=== PATIENT | female | born 1970 | race Caucasian/White ===

== ENCOUNTER 2020-01-13 09:34 | Outpatient (REF) | payer BC, SELFPAY ==
--- NOTE | 2020-01-13 11:02 | US_ITS ---
EXAMINATION: US PELVIS ULTRASOUND CLINICAL INFORMATION: Left lower quadrant pain. Prior history left oophorectomy. Age 49. COMPARISON: Pelvic ultrasound 12/05/2013, CT abdomen and pelvis noncontrast 12/05/2013. TECHNIQUE: Ultrasound of the pelvis is performed using both transabdominal and transvaginal transducers along with Doppler. Transvaginal imaging is performed due to inadequate visualization transabdominally. FINDINGS: Uterus: The uterus is anteverted and measures 9.3 x 3.8 x 4.9 cm. The double wall endometrial thickness is normal at 4 mm. An IUD is seen in expected position. The uterus is smooth in contour and has normal myometrial echogenicity. No visible fibroid. There are a few tiny nabothian cysts in the cervix. Adnexa: Prior left oophorectomy. No left pelvic mass. There is small to moderate ascites in the cul-de-sac. Right ovary measures 4.6 x 1.3 x 3.8 cm (volume 12 mL). There is an incidental dominant follicle in the right ovary measuring 1.7 x 1.2 x 1.6 cm. There is normal color flow to the right ovary. US/US pelvic complete IMPRESSION: 1. Uterus: IUD in expected position. No visible fibroid. 2. Adnexa: Small to moderate ascites cul-de-sac. Incidental dominant follicle right ovary under 2 cm. Prior left oophorectomy.
[2020-01-13 11:14] LABS: MANUAL DIFF FLAG NO
--- NOTE | 2020-01-13 11:16 | US_ITS ---
EXAMINATION: US PELVIS ULTRASOUND CLINICAL INFORMATION: Left lower quadrant pain. Prior history left oophorectomy. Age 49. COMPARISON: Pelvic ultrasound 12/05/2013, CT abdomen and pelvis noncontrast 12/05/2013. TECHNIQUE: Ultrasound of the pelvis is performed using both transabdominal and transvaginal transducers along with Doppler. Transvaginal imaging is performed due to inadequate visualization transabdominally. FINDINGS: Uterus: The uterus is anteverted and measures 9.3 x 3.8 x 4.9 cm. The double wall endometrial thickness is normal at 4 mm. An IUD is seen in expected position. The uterus is smooth in contour and has normal myometrial echogenicity. No visible fibroid. There are a few tiny nabothian cysts in the cervix. Adnexa: Prior left oophorectomy. No left pelvic mass. There is small to moderate ascites in the cul-de-sac. Right ovary measures 4.6 x 1.3 x 3.8 cm (volume 12 mL). There is an incidental dominant follicle in the right ovary measuring 1.7 x 1.2 x 1.6 cm. There is normal color flow to the right ovary. US/US transvaginal IMPRESSION: 1. Uterus: IUD in expected position. No visible fibroid. 2. Adnexa: Small to moderate ascites cul-de-sac. Incidental dominant follicle right ovary under 2 cm. Prior left oophorectomy.
[2020-01-13 11:28] LABS: Basophils Absolute Auto 0.1 X10*3/uL (0.0-0.2); Basophils Percent Auto 0.8 % (0-2); Eosinophils Absolute Auto 0.3 X10*3/uL (0.0-0.4); Eosinophils Percent Auto 3.1 % (0-4); Hematocrit 40.8 % (37-47); Hemoglobin 13.4 g/dl (12.0-16.0); Imm Gran Abs Auto 0.02 X10*3/uL (0.00-0.03); Imm Gran Pct Auto 0.2 % (0.0-0.4); Lymphocytes Absolute Auto 1.9 X10*3/uL (1.2-4.9); Lymphocytes Percent Auto 22.6 % (20-40); Mean Corpuscular HGB Conc 32.8 g/dl (31.0-35.0); Mean Corpuscular Hemoglobin 29.8 pg (27.0-33.0); Mean Corpuscular Volume 90.9 fL (80-98); Mean Platelet Volume 10.6 fL (9.4-12.3); Monocytes Absolute Auto 0.7 X10*3/uL (0.1-1.2); Monocytes Percent Auto 8.9 % (2-11); Neutrophils Absolute Auto 5.4 X10*3/uL (2.0-8.3); Neutrophils Percent Auto 64.4 % (45-73); Platelet Count 448 X10*3/uL (160-400); Red Blood Count 4.49 X10*6/uL (4.20-5.50); Red Cell Distribution Width 13.3 % (11.0-16.0); White Blood Count 8.3 X10*3/uL (4.8-10.8)
[2020-01-13 11:57] LABS: Anion Gap 11 (12-20); Blood Urea Nitrogen 21 mg/dL (9-16); Calcium 9.3 mg/dL (8.4-10.2); Carbon Dioxide 30 mmol/L (22-29); Chloride 99 mmol/L (96-108); Estimated Glomerular Filt Rate > 60; Glucose Random 82 mg/dL (60-115); Potassium 4.5 mmol/l (3.3-5.1); Sodium 135 mmol/L (135-145)
== END 2020-01-13 09:35 | disposition home or self-care (01) ==
LOC: HO.HMGCX 09:34
PROVIDERS: PCP Internal Medicine; Visit Provider Internal Medicine
DX: R10.2 Pelvic and perineal pain (principal); R10.32 Left lower quadrant pain
CPT/HCPCS: 36415; 76830; 76856; 80048; 85025

== ENCOUNTER 2021-08-10 07:21 | Outpatient (REF) | payer BC, SELFPAY ==
[2021-08-10 11:06] LABS: MANUAL DIFF FLAG NO
[2021-08-10 11:14] LABS: Basophils Absolute Auto 0.1 X10*3/uL (0.0-0.2); Basophils Percent Auto 0.8 % (0-2); Eosinophils Absolute Auto 0.2 X10*3/uL (0.0-0.4); Eosinophils Percent Auto 2.8 % (0-4); Hematocrit 41.1 % (37.0-47.0); Hemoglobin 13.6 g/dl (12.0-16.0); Imm Gran Abs Auto 0.02 X10*3/uL (0.00-0.03); Imm Gran Pct Auto 0.3 % (0.0-0.4); Lymphocytes Absolute Auto 2.1 X10*3/uL (1.2-4.9); Mean Corpuscular HGB Conc 33.1 g/dl (31.0-35.0); Mean Corpuscular Hemoglobin 29.5 pg (27.0-33.0); Mean Corpuscular Volume 89.2 fL (80.0-98.0); Mean Platelet Volume 10.8 fL (9.4-12.3); Monocytes Absolute Auto 0.6 X10*3/uL (0.1-1.2); Monocytes Percent Auto 7.8 % (2-11); Neutrophils Absolute Auto 4.3 x10*3/uL (2.0-8.3); Neutrophils Percent Auto 59.3 % (45-73); Platelet Count 487 X10*3/uL (160-400); Red Blood Count 4.61 X10*6/uL (4.20-5.50); Red Cell Distribution Width 13.2 % (11.0-16.0); White Blood Count 7.2 X10*3/uL (4.8-10.8)
[2021-08-10 11:35] LABS: Alanine Aminotransferase 28 U/L (0-31); Albumin Level 4.1 g/dL (3.5-5.0); Alkaline Phosphatase 110 U/L (39-117); Anion Gap 11 (12-20); Aspartate Amino Transferase 21 U/L (5-31); Bilirubin Total 0.4 mg/dL (0.0-1.0); Blood Urea Nitrogen 14 mg/dL (9-16); Calcium 10.2 mg/dL (8.4-10.2); Carbon Dioxide 27 mmol/L (22-29); Chloride 101 mmol/L (96-108); Cholesterol 208 mg/dL; Estimated Glomerular Filt Rate > 60; Glucose Fasting 105 mg/dL (60-99); HDL Cholesterol 37 mg/dL; LDL Cholesterol Calculated 137 mg/dl; Potassium 4.2 mmol/L (3.3-5.1); Sodium 135 mmol/L (135-145); Total Protein 7.5 g/dL (6.5-8.0); Triglycerides 173 mg/dL
[2021-08-10 11:43] LABS: TSH reflex Free T4 1.14 uIU/mL (0.32-4.0); Vitamin D 25-OH Total 34.3 ng/mL (>30)
== END 2021-08-10 07:22 | disposition home or self-care (01) ==
LOC: HO.HMGCLDS 07:21
PROVIDERS: Visit Provider Internal Medicine
DX: Z00.00 Encounter for general adult medical examination without abnormal findings (principal)
CPT/HCPCS: 36415; 80053; 80061; 82306; 84443; 85025

== ENCOUNTER 2022-03-29 07:03 | Outpatient (REF) | payer BC, SELFPAY ==
[2022-03-29 11:18] LABS: Appearance Urine Clear; Color Urine Yellow; Glucose Urine UA Negative (Negative); Leukocyte Esterase Urine Negative (Negative); Nitrite Urine Negative (Negative); PH 6.5 (5.0-9.0); Urine Blood Negative (Negative); Urine Ketones Negative (Negative); Urine Protein Negative (Neg-Trace)
[2022-03-29 11:19] LABS: MANUAL DIFF FLAG NO
[2022-03-29 11:24] LABS: Bacteria Urine None Seen (None Seen); Hyaline Casts Urine 0-2 /LPF (0-2); RBC Urine 0-2 /HPF (0-2); Squamous Epithelial Cell Urine 0-2 /HPF (0-2); WBC Urine 0-5 /HPF (0-5)
[2022-03-29 11:29] LABS: INTERNATIONAL NORM RATIO 0.9 (0.9-1.1); Prothrombin Time 10.1 SEC (10.0-13.1)
[2022-03-29 11:35] LABS: Basophils Absolute Auto 0.1 X10*3/uL (0.0-0.2); Eosinophils Absolute Auto 0.2 X10*3/uL (0.0-0.4); Eosinophils Percent Auto 2.4 % (0-4); Hematocrit 41.2 % (37.0-47.0); Hemoglobin 13.5 g/dl (12.0-16.0); Imm Gran Abs Auto 0.01 X10*3/uL (0.00-0.03); Imm Gran Pct Auto 0.2 % (0.0-0.4); Lymphocytes Absolute Auto 2.1 X10*3/uL (1.2-4.9); Lymphocytes Percent Auto 33.5 % (20-40); Mean Corpuscular HGB Conc 32.8 g/dl (31.0-35.0); Mean Corpuscular Hemoglobin 29.4 pg (27.0-33.0); Mean Corpuscular Volume 89.8 fL (80.0-98.0); Mean Platelet Volume 10.4 fL (9.4-12.3); Monocytes Absolute Auto 0.5 X10*3/uL (0.1-1.2); Monocytes Percent Auto 8.6 % (2-11); Neutrophils Absolute Auto 3.4 x10*3/uL (2.0-8.3); Neutrophils Percent Auto 54.3 % (45-73); Platelet Count 523 X10*3/uL (160-400); Red Blood Count 4.59 X10*6/uL (4.20-5.50); Red Cell Distribution Width 13.4 % (11.0-16.0); White Blood Count 6.2 X10*3/uL (4.8-10.8)
[2022-03-29 11:39] LABS: Partial Thromboplastin Time 31.6 SEC (26.0-36.4)
[2022-03-29 11:49] LABS: Estimated Average Glucose 108 mg/dL; Hemoglobin A1c % 5.4 %
[2022-03-29 11:54] LABS: Alanine Aminotransferase 16 U/L (0-31); Albumin Level 3.8 g/dL (3.5-5.0); Alkaline Phosphatase 102 U/L (39-117); Anion Gap 14 (12-20); Aspartate Amino Transferase 13 U/L (5-31); Bilirubin Total 0.3 mg/dL (0.0-1.0); Blood Urea Nitrogen 15 mg/dL (9-16); Calcium 9.8 mg/dL (8.4-10.2); Carbon Dioxide 27 mmol/L (22-29); Chloride 100 mmol/L (96-108); Cholesterol 225 mg/dL; Estimated Glomerular Filt Rate > 60; Glucose Fasting 103 mg/dL (60-99); HDL Cholesterol 46 mg/dL; LDL Cholesterol Calculated 149 mg/dl; Potassium 4.4 mmol/L (3.3-5.1); Sodium 137 mmol/L (135-145); Triglycerides 154 mg/dL
== END 2022-03-29 07:04 | disposition home or self-care (01) ==
LOC: HO.HMGCLDS 07:03
PROVIDERS: PCP Internal Medicine; Visit Provider Internal Medicine
DX: I10 Essential (primary) hypertension (principal); M25.569 Pain in unspecified knee; E78.5 Hyperlipidemia, unspecified
CPT/HCPCS: 36415; 80053; 80061; 81001; 83036; 85025; 85610; 85730

== ENCOUNTER → 2022-03-30 10:55 | Outpatient (REF) | payer BC, SELFPAY ==
--- NOTE | 2022-03-30 10:58 | CA_ITS ---
Transthoracic Echocardiogram Patient (Last, First, Middle): Roselyn Fernando, Gender: Female Date of : 1970 Age: 51 Procedure Date: 03/30/2022 Procedure Type: Transthoracic Echocardiogram Location: OP Height: 175.26 cm Weight: 103.42 kg BSA: 2.18 m2 Heart Rate: bpm BP: 140 / 82 mmHg Records Associate: Referring MD: Flora Villa MD Medication Care Manager: Mg Pollock MD Symptoms: I10 - Essential (primary) hypertension Study Quality: Adequate ECG Rhythm: Sinus Conclusions: - Normal study Findings Left Ventricle Normal left ventricular size, thickness, and systolic function. The visually estimated ejection fraction is between 55-60%. Spectral Doppler is indicative of a normal filling pattern. Right Ventricle Normal right ventricular cavity size and systolic function. Atria Both atria are normal in size. Interatrial shunt cannot be excluded. Aortic Valve Normal aortic valve structure and function. There is no aortic valve stenosis. There is no aortic valve regurgitation. Mitral Valve Normal mitral valve structure and function. There is trace mitral valve regurgitation. There is no mitral valve stenosis. Pulmonic Valve The pulmonic valve is likely normal. Tricuspid Valve Normal tricuspid valve structure. There is trace tricuspid valve regurgitation. The right ventricular systolic pressure is normal. The right ventricular systolic pressure is 15 mmHg. Normal right atrial pressure. There is no evidence of pulmonary hypertension. Great Vessels All visible segments of the aorta are normal in size. The pulmonary artery was not well visualized. Venous The inferior vena cava is normal in size and collapses greater than 50% with inspiration. Pericardium/Pleural There is no evidence of pericardial effusion. Prior Study Comparison No prior study available for comparison. Measurements 2D Linear Measurements IVSd: 1.02 0.6-0.9/0.6-1.0 cm LVIDd: 5.00 3.9-5.3/4.2-5.9 cm LVIDd Index: 2.29 2.4-3.2/2.2-3.1 cm/m2 LVIDs: 2.90 2.0-3.6 cm LVPWd: 0.97 0.7-1.1 cm Ao Root: 3.60 2.1-3.5 cm LA Diam: 3.90 2.7-3.8/3.0-4.0 cm LAIDs Index: 1.79 1.5-2.3 cm/m2 LV Mass: 225.80 67-162/88-224 g LV Mass Index: 103.58 43-95/49-115 g/m2 LVOT Diam: 2.30 3.0+(-)1.3 cm 2D Systolic Function EF 4C: 52.20 >55% EF 2C: 61.30 >55% EF BiP: 57.60 >55% Mitral Valve MV Pk E: 0.76 MV PK A: 0.63 MV Decel Time: 143.00 E/A: 1.20 E'Lateral: 15.20 E'Medial: 7.08 E/E' Med: 10.80 E/E' Lat: 5.00 PHT: 42.00 MVA PHT: 5.24 Decel Giles: 5.35 Aortic Valve AoV Pk Sal: 1.58 AoV Mn Sal: 1.07 AoV VTI: 0.36 AoV Pk Grad: 10.00 Aov Mn Grad: 5.00 MOUSTAPHA Cont.VTI: 2.34 LVOT LVOT Pk Sal: 0.93 LVOT Mn Sal: 0.70 LVOT VTI: 0.20 LVOT Pk Grad: 3.00 LVOT Mn Grad: 2.00 LVOT Diam: 2.30 LVOT Area: 4.15 Diastolic Function MV Pk E: 0.76 MV Pk A: 0.63 E/A: 1.20 E'Medial: 7.08 E/E' Med: 10.80 E' Laterial: 15.20 E/E' Lat: 5.00 Right Ventricle TAPSE (mm): 26.20 TVS' Sal: 11.30 Tricuspid Valve TR Pk Sal: 1.70 TR Pk Grad: 12.00 RA Press: 3.00 RVSP: 15.00 Great Vessels Aorta Ao Root-2D: 3.60 2.0-3.7 cm Ao Asc: 3.20 2.1-3.4 cm Pulmonary Valve PV Pk Sal: 1.08 Peak PV Grad: 5.00 Updated in Other Vendor System with Status of Final Mg Pollock MD electronically signed on 03/31/2022 2:03:36 PM with status of Final
== END ==
LOC: HO.CARD 10:55
PROVIDERS: PCP Internal Medicine; Visit Provider Internal Medicine
DX: I10 Essential (primary) hypertension (principal); R94.31 Abnormal electrocardiogram [ECG] [EKG]
CPT/HCPCS: 93306

== ENCOUNTER 2022-08-22 07:25 | Outpatient (REF) | payer BC, SELFPAY ==
--- NOTE | ~2022-08-22 | MM_ITS ---
EXAMINATION: MM SCREENING DIGITAL BREAST TOMOSYNTHESIS, BILATERAL CLINICAL INFORMATION: Screening. Asymptomatic. The lifetime risk of breast cancer based on the Tyrer-Cuzick Model is 9.8%. COMPARISON: Mammography: This study is compared with prior exams dating back to 2015. TECHNIQUE: Digital breast tomosynthesis is performed in both the craniocaudal and mediolateral oblique views along with computer-aided detection (CAD). Synthesized 2D images are generated from the tomosynthesis. FINDINGS: There are scattered areas of fibroglandular density (ACR BI-RADS breast composition Category b). There are no significant masses, abnormal calcifications, or other abnormalities. MM/MM tomosynthesis screening BI IMPRESSION: No mammographic evidence of malignancy. ASSESSMENT: BI-RADS BI-RADS 1 - Negative RECOMMENDATION: Routine annual mammography screening. 1 year F/U This examination should not preclude the clinical evaluation of a suspicious palpable abnormality. This patient's information was entered into a reminder system with a target due date for their next mammogram.
== END 2022-08-22 07:26 | disposition home or self-care (01) ==
LOC: HO.MAMMO 07:25
PROVIDERS: PCP Internal Medicine; Visit Provider Internal Medicine
DX: Z12.31 Encounter for screening mammogram for malignant neoplasm of breast (principal)
CPT/HCPCS: 77063; 77067

== ENCOUNTER → 2022-08-22 07:30 | Outpatient (BNV) | payer BC, SELFPAY | PROVIDERS: PCP Internal Medicine; Visit Provider Radiology Diagnostic Radiology | DX: Z12.31 Encounter for screening mammogram for malignant neoplasm of breast (principal) | CPT/HCPCS: 77063; 77067 ==

== ENCOUNTER 2023-05-01 14:09 | Outpatient (AMB) | payer BC, SELFPAY ==
--- NOTE | 2023-05-01 14:32 | MHC.PC.OV ---
Vital Signs 05/01/23 14:37 Height 5 ft 8 in Weight 256 lb BMI 38.9 BP 122/78 Blood Pressure Location Lt brachial Position Sitting Pulse 83 Pulse Source Pulse Oximeter Pulse Oximetry (%) 96 Oxygen Delivery Method Room Air Intake Visit Reasons: Discuss weight loss medication Intake Note: Pt is here today for a follow up visit. Pt would like to discuss weight loss medication. Allergies ketorolac [From TORADOL] Allergy (Intermediate, Verified 05/01/23 14:40) lowers BP latex Allergy (Unknown, Verified 05/01/23 14:40) Rash penicillin V Allergy (Unknown, Verified 05/01/23 14:40) rash Penicillins [PENICILLINS] Allergy (Unknown, Verified 05/01/23 14:40) HIVES bandage Allergy (Unknown, Uncoded 05/01/23 14:40) rash Medication List - Last Reconciled 05/01/23 by Flora Villa MD citalopram 20 mg PO DAILY conjugated estrogens (Premarin) 0.45 mg PO DAILY hydroxyzine HCl 10 mg PO BEDTIME lisinopril-hydrochlorothiazide 10-12.5 mg 2 tabs PO DAILY multivitamin (Daily Multi-Vitamin tablet) 1 tab PO DAILY omeprazole 10 mg PO DAILY ondansetron HCl 4 mg PO BEDTIME PRN 4 days Wegovy (semaglutide (weight loss)) 0.25 mg (0.5 mL) subcut QWEEK NS Tobacco use date assessed: 05/01/23 Dental Screening Dental Screen Date: 05/01/23 Did you have a dental visit in the last 12 months?: Yes Did you have a dental problem in the last 6 months where you did not have access to dental care?: No Was dental information given to patient?: Patient has dentist HPI Discuss weight loss medication HPI Details Patient presents complaining of not being able to lose weight despite regular physical activity, walking daily and following low carb diet. Patient tried weight watchers in the past and was able to lose some weight. She is scheduled to have left knee total arthroplasty next month at [facility]. Patient follows up with geographic information systems manager at [facility] for menopausal symptoms and was started on Premarin in addition to Mirena. She reports persistent hot flashes. [facility] Medical History (Updated 05/01/23 @ 15:09 by Flora iVlla MD) Bursitis Perimenopausal Overweight Annual physical exam Anxiety HTN (hypertension) Pelvic pain Surgical History H/O colonoscopy History of oophorectomy, unilateral Hx of carpal tunnel syndrome History of appendectomy Hx of cholecystectomy Family History Mother HTN (hypertension) Son No problems noted. Brother Substance use disorder Social History Housing: House Alcohol intake: never Patient Tobacco Use Status: Former Tobacco user e-Cigarette/Vaping Use: Never Used Current occupational status: employed Cognitive needs: No Hearing needs: No Vision needs: Yes Questionnaire PHQ-9 Over the last 2 weeks, how often have you been bothered by any of the following problems? 1. Little interest or pleasure in doing things: not at all 2. Feeling down, depressed, or hopeless: not at all 3. Trouble falling or staying asleep, or sleeping too much: several days 4. Feeling tired or having little energy: several days 5. Poor appetite or overeating: not at all 6. Feeling bad about yourself - or that you are a failure or have let yourself or your family down: not at all 7. Trouble concentrating on things, such as reading the newspaper or watching television: not at all 8. Moving or speaking so slowly that other people could have noticed. Or the opposite - being so fidgety or restless that you have been moving around a lot more than usual: not at all 9. Thoughts that you would be better off or of hurting yourself in some way: not at all Total score: 2 Depression Screening Interpretation: Negative Depression Screening Done: Yes Source: Developed by Drs. Jackson Caraballo, Mercedes Rg, Joaquin Alvarado and colleagues, with an educational eleuterio from [employer]. Thrive Questionnaire Date Thrive assessed: 05/01/23 I am a: Patient What is your living situation today?: I have a steady place to live Within the past 12 months, did the food you bought not last and you didn't have the money to get more?: Never true Within the past 12 months, did you worry whether your food would run out before you got money to buy more?: Never true Do you have trouble paying for medicines?: No Do you have trouble getting transportation to medical appointments?: No Do you have trouble paying your heating and electricity bill?: No Do you have trouble taking care of your child, family member or friend?: No Do you have trouble with day-to-day activities such as bathing, preparing meals, shopping, managing finances, etc.?: No Are you currently unemployed and looking for a job?: Yes Are you interested in more education?: No Please select the resources that you would like help with: Job search/training THRIVE Score: 0 AUDIT C Alcohol Use Questionnaire (AUDIT-C) 1. How often do you have a drink containing alcohol?: Never 3. How often do you have six or more drinks on one occasion?: Never Total Score: 0 ALINE-7 AMB Questionnaire ALINE-7 Date ALINE - 7 assessed: 05/01/23 Feeling nervous, anxious, or on edge: 1 = Several days Not being able to stop or control worryin = Not at all Worrying too much about different things: 0 = Not at all Trouble relaxin = More than half the days Being so restless that it is hard to sit still: 1 = Several days Becoming easily annoyed or irritable: 1 = Several days Feeling afraid as if something awful might happen: 0 = Not at all Total ALINE-7 score (0-4 normal; 5-9 mild; 10-14 moderate; 15-21 severe): 5 Source: Developed by Drs. Jackson Caraballo, Mercedes Rg, Joaquin Alvarado and colleagues, with an educational eleuterio from [employer]. Review of Systems Const All systems reviewed & are unremarkable except as noted in HPI and below Reports no additional complaints Eyes Reports no additional complaints ENT Reports no additional complaints Card Reports no additional complaints Resp Reports no additional complaints GI Reports no additional complaints Reports no additional complaints Physical exam (Primary Care) Vital Signs: Last Vital Signs Pulse 83 05/01/23 14:37 BP 122/78 05/01/23 14:37 Pulse Ox 96 05/01/23 14:37 Oxygen Delivery Method Room Air 05/01/23 14:37 BMI result Body Mass Index 38.9 Tobacco/Smoking Status: Tobacco use Status Tobacco use date assessed 05/01/23 05/01/23 14:43 Patient Tobacco Use Status Former Tobacco user 05/01/23 14:32 e-Cigarette/Vaping Use Never Used 05/01/23 14:32 PHQ-9: PHQ-9 Score PHQ-9: Total score 2 05/01/23 14:46 Depression Screening Interpretation: Negative Thrive Assessment: Date of Thrive Assessment Date Thrive assessed 05/01/23 05/01/23 14:46 Const General: no acute distress HENMT Head: Yes normal to inspection Ears: hearing grossly normal bilaterally Mouth: Normal oral and palatal mucosa present Eyes General: appearance normal, both eyes and all related structures Resp Effort & Inspection: normal respiratory effort Auscultation: clear to auscultation bilaterally Cardio Rhythm: regular rhythm Heart sounds: S1 normal heart sound present and S2 normal heart sound present Assessment and Plan Assessment & Plan (1) Annual physical exam: Code(s): Z00.00 - Encounter for general adult medical examination without abnormal findings Plan: Patient will return for fasting blood work (2) HTN (hypertension): Code(s): I10 - Essential (primary) hypertension Plan: Continue current medications (3) Obesity (BMI 30-39.9): Code(s): E66.9 - Obesity, unspecified Plan: Patient will be 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 Wegovy 0.25 mg weekly for the 1st month will be started and side effects discussed with the patient. She will follow-up in 1 month Orders: Orders TSH reflex Free T4 Today I10 - Essential (primary) hypertension, Z00.00 - Encounter for general adult medical examination without abnormal findings Comprehensive [place]. Panel Fast Today I10 - Essential (primary) hypertension, Z00.00 - Encounter for general adult medical examination without abnormal findings Complete Blood Count Auto Diff Today I10 - Essential (primary) hypertension, Z00.00 - Encounter for general adult medical examination without abnormal findings Lipid Panel Today I10 - Essential (primary) hypertension, Z00.00 - Encounter for general adult medical examination without abnormal findings UA w Microscopic Today I10 - Essential (primary) hypertension, Z00.00 - Encounter for general adult medical examination without abnormal findings Hemoglobin A1c Today I10 - Essential (primary) hypertension, Z00.00 - Encounter for general adult medical examination without abnormal findings Referrals Nutrition/Dietitian Referral E66.01 - Morbid (severe) obesity due to excess calories, I10 - Essential (primary) hypertension, Z68.41 - Body mass index [BMI] 40.0-44.9, adult Medications: New Wegovy (semaglutide (weight loss)) administer weeks 1 through 4 of therapy 0.25 mg (0.5 mL) subcut QWEEK 2 mL 0RF NS Coding Level of Care Code Est Pt Level 4 (30401) Diagnoses Annual physical exam Z00.00 HTN (hypertension) I10 Obesity (BMI 30-39.9) E66.9
[2023-05-01 14:37] VITALS: BP 122/78; PULSE 83; O2SAT 96; BMI 38.9
== END 2023-05-01 15:14 | disposition home or self-care (01) ==
PROVIDERS: PCP Internal Medicine; Visit Provider Internal Medicine
DX: I10 Essential (primary) hypertension (principal); E66.9 Obesity, unspecified; Z68.38 Body mass index [BMI] 38.0-38.9, adult
CPT/HCPCS: 99214

== ENCOUNTER 2023-05-25 07:44 | Outpatient (REF) | payer BC, SELFPAY ==
[2023-05-25 11:12] LABS: Appearance Urine Clear; Color Urine Yellow; Glucose Urine UA Negative (Negative); Nitrite Urine Negative (Negative); PH 6.5 (5.0-9.0); Specific Gravity - Urine 1.015 (1.005-1.025); Urine Blood Small (1+) (Negative); Urine Ketones Negative (Negative); Urine Protein Negative (Neg-Trace)
[2023-05-25 11:13] LABS: Leukocyte Esterase Urine Negative (Negative); UMIC TRIGGER UA YES
[2023-05-25 11:19] LABS: Bacteria Urine Trace (None Seen); Hyaline Casts Urine 0-2 /LPF (0-2); WBC Urine 0-5 /HPF (0-5)
[2023-05-25 11:23] LABS: Basophils Absolute Auto 0.1 X10*3/uL (0.0-0.2); Basophils Percent Auto 0.9 % (0-2); Eosinophils Absolute Auto 0.2 X10*3/uL (0.0-0.4); Hematocrit 39.6 % (37.0-47.0); Hemoglobin 12.9 g/dl (12.0-16.0); Imm Gran Abs Auto 0.02 X10*3/uL (0.00-0.03); Imm Gran Pct Auto 0.3 % (0.0-0.4); Lymphocytes Absolute Auto 2.5 X10*3/uL (1.2-4.9); Lymphocytes Percent Auto 32.8 % (20-40); MANUAL DIFF FLAG NO; Mean Corpuscular HGB Conc 32.6 g/dl (31.0-35.0); Mean Corpuscular Hemoglobin 29.3 pg (27.0-33.0); Mean Platelet Volume 10.1 fL (9.4-12.3); Monocytes Absolute Auto 0.6 X10*3/uL (0.1-1.2); Monocytes Percent Auto 7.5 % (2-11); Neutrophils Absolute Auto 4.3 x10*3/uL (2.0-8.3); Neutrophils Percent Auto 55.5 % (45-73); Platelet Count 503 X10*3/uL (160-400); Red Cell Distribution Width 13.5 % (11.0-16.0); White Blood Count 7.7 X10*3/uL (4.8-10.8)
[2023-05-25 11:32] LABS: INTERNATIONAL NORM RATIO 0.9 (0.9-1.1); Prothrombin Time 10.4 SEC (11.1-13.3)
[2023-05-25 11:37] LABS: Estimated Average Glucose 105 mg/dL; Hemoglobin A1c % 5.3 % (<6.0)
[2023-05-25 11:43] LABS: Alanine Aminotransferase 20 U/L (0-31); Albumin Level 3.7 g/dL (3.5-5.0); Alkaline Phosphatase 74 U/L (39-117); Anion Gap 12 (12-20); Aspartate Amino Transferase 19 U/L (5-31); Bilirubin Total 0.3 mg/dL (0.0-1.0); Blood Urea Nitrogen 15 mg/dL (9-16); Calcium 9.3 mg/dL (8.4-10.2); Carbon Dioxide 25 mmol/L (22-29); Chloride 104 mmol/L (96-108); Cholesterol 221 mg/dL (<200); Estimated Glomerular Filt Rate > 60; Glucose Fasting 94 mg/dL (60-99); HDL Cholesterol 45 mg/dL (>40); LDL Cholesterol Calculated 125 mg/dL (<100); Potassium 3.9 mmol/L (3.3-5.1); Sodium 137 mmol/L (135-145); Total Protein 7.2 g/dL (6.5-8.0); Triglycerides 258 mg/dL (<150)
[2023-05-25 12:00] LABS: TSH reflex Free T4 1.18 uIU/mL (0.32-4.0)
== END 2023-05-25 07:45 | disposition home or self-care (01) ==
LOC: HO.HMGCLDS 07:44
PROVIDERS: PCP Internal Medicine; Visit Provider Internal Medicine
DX: Z00.00 Encounter for general adult medical examination without abnormal findings (principal); E78.5 Hyperlipidemia, unspecified; I10 Essential (primary) hypertension; D75.839 Thrombocytosis, unspecified
CPT/HCPCS: 36415; 80053; 80061; 81001; 83036; 84443; 85025; 85610; 85730

== ENCOUNTER 2023-05-29 13:55 | Outpatient (AMB) | payer BC, SELFPAY ==
--- NOTE | 2023-05-29 13:57 | MHC.PC.OV ---
Vital Signs 05/29/23 13:58 Height 5 ft 8 in Weight 256 lb BMI 38.9 BP 122/76 Blood Pressure Location Lt brachial Position Sitting Pulse 81 Pulse Source Pulse Oximeter Pulse Oximetry (%) 97 Oxygen Delivery Method Room Air Intake Visit Reasons: Pre Operative Clearance- SEE BULLETIN BOARD Allergies ketorolac [From TORADOL] Allergy (Intermediate, Verified 05/29/23 14:02) lowers BP latex Allergy (Unknown, Verified 05/29/23 14:02) Rash penicillin V Allergy (Unknown, Verified 05/29/23 14:02) rash Penicillins [PENICILLINS] Allergy (Unknown, Verified 05/29/23 14:02) HIVES bandage Allergy (Unknown, Uncoded 05/29/23 14:02) rash Tobacco use date assessed: 05/01/23 Dental Screening Dental Screen Date: 05/01/23 HPI Pre Operative Clearance- SEE BULLETIN BOARD HPI Details Pt presents for L knee replacement on 06/12. Hypertension is controlled on lisinopril with hydrochlorothiazide. Patient has been on Premarin hormonal replacement hot flashes prescribed by system configuration specialist. [facility] Medical History (Updated 05/29/23 @ 14:35 by Flora Villa MD) Bursitis Perimenopausal Overweight Annual physical exam Anxiety HTN (hypertension) Pelvic pain Surgical History H/O colonoscopy History of oophorectomy, unilateral Hx of carpal tunnel syndrome History of appendectomy Hx of cholecystectomy Family History Mother HTN (hypertension) Son No problems noted. Brother Substance use disorder Social History Housing: House Alcohol intake: never Patient Tobacco Use Status: Former Tobacco user e-Cigarette/Vaping Use: Never Used service: No Current occupational status: employed Cognitive needs: No Hearing needs: No Vision needs: Yes Questionnaire Thrive Questionnaire Date Thrive assessed: 05/01/23 AUDIT C Alcohol Use Questionnaire (AUDIT-C) 1. How often do you have a drink containing alcohol?: Never 3. How often do you have six or more drinks on one occasion?: Never Total Score: 0 ALINE-7 AMB Questionnaire ALINE-7 Date ALINE - 7 assessed: 05/01/23 Source: Developed by Drs. Jackson Caraballo, Mercedes Rg, Joaquin Alvarado and colleagues, with an educational eleuterio from [employer]. Review of Systems Const All systems reviewed & are unremarkable except as noted in HPI and below Eyes Reports no additional complaints ENT Reports no additional complaints Card Reports no additional complaints Resp Reports no additional complaints GI Reports no additional complaints Reports no additional complaints Physical exam (Primary Care) Vital Signs: Last Vital Signs Pulse 81 05/29/23 13:58 BP 122/76 05/29/23 13:58 Pulse Ox 97 05/29/23 13:58 Oxygen Delivery Method Room Air 05/29/23 13:58 BMI result Body Mass Index 38.9 Tobacco/Smoking Status: Tobacco use Status Tobacco use date assessed 05/01/23 05/29/23 13:59 Patient Tobacco Use Status Former Tobacco user 05/29/23 13:59 e-Cigarette/Vaping Use Never Used 05/29/23 13:59 Thrive Assessment: Date of Thrive Assessment Date Thrive assessed 05/01/23 05/29/23 13:59 Const General: no acute distress HENMT Head: Yes normal to inspection Mouth: Normal oral and palatal mucosa present Eyes General: appearance normal, both eyes and all related structures Resp Effort & Inspection: normal respiratory effort Auscultation: clear to auscultation bilaterally Cardio Rhythm: regular rhythm Heart sounds: S1 normal heart sound present and S2 normal heart sound present GI Inspection: Yes normal to inspection Palpation (GI): Soft to palpation Assessment and Plan Assessment & Plan (1) Abnormal EKG: Comment: Echo 05/10 normal ejection fraction no valve abnormalities Code(s): R94.31 - Abnormal electrocardiogram [ECG] [EKG] Plan: EKG showed normal sinus rhythm left axis no acute ST-T changes, not interval changes compared to 04/2022 (2) HTN (hypertension): Code(s): I10 - Essential (primary) hypertension Plan: Controlled on current medications (3) Osteoarthritis of left knee: Code(s): M17.12 - Unilateral primary osteoarthritis, left knee Plan: Patient is medically cleared for left knee replacement surgery. Patient was advised to discuss stopping Premarin before the surgery and during the recovery to prevent increased risk for DVT. Coding Level of Care Code Est Pt Level 3 (95486) Diagnoses Abnormal EKG R94.31 HTN (hypertension) I10 Osteoarthritis of left knee M17.12
[2023-05-29 13:58] VITALS: BP 122/76; PULSE 81; O2SAT 97; BMI 38.9
== END 2023-05-29 14:42 | disposition home or self-care (01) ==
PROVIDERS: PCP Internal Medicine; Visit Provider Internal Medicine
DX: R94.31 Abnormal electrocardiogram [ECG] [EKG] (principal); I10 Essential (primary) hypertension; M17.12 Unilateral primary osteoarthritis, left knee
CPT/HCPCS: 99213

== ENCOUNTER 2023-09-26 07:30 | Outpatient (REF) | payer BC, SELFPAY ==
--- NOTE | ~2023-09-26 | MM_ITS ---
EXAMINATION: MM SCREENING DIGITAL BREAST TOMOSYNTHESIS, BILATERAL CLINICAL INFORMATION: Screening. Asymptomatic. COMPARISON: Mammography: This study is compared with prior exams dating back to 2018. TECHNIQUE: Digital breast tomosynthesis is performed in both the craniocaudal and mediolateral oblique views along with computer-aided detection (CAD). Synthesized 2D images are generated from the tomosynthesis. FINDINGS: There are scattered areas of fibroglandular density (ACR BI-RADS breast composition Category b). There are no significant masses, abnormal calcifications, or other abnormalities. MM/MM tomosynthesis screening BI IMPRESSION: No mammographic evidence of malignancy. ASSESSMENT: BI-RADS BI-RADS 1 - Negative RECOMMENDATION: Routine annual mammography screening. 1 year F/U This examination should not preclude the clinical evaluation of a suspicious palpable abnormality. This patient's information was entered into a reminder system with a target due date for their next mammogram. Electronically signed by: Marge Hu MD 10/24/2023 08:49 AM EDT
== END 2023-09-26 07:31 | disposition home or self-care (01) ==
LOC: HO.MAMMO 07:30
PROVIDERS: PCP Internal Medicine; Visit Provider Internal Medicine
DX: Z12.31 Encounter for screening mammogram for malignant neoplasm of breast (principal)
CPT/HCPCS: 77063; 77067

== ENCOUNTER → 2023-09-26 07:45 | Outpatient (BNV) | payer BC, SELFPAY | PROVIDERS: PCP Internal Medicine; Visit Provider Radiology Diagnostic Radiology | DX: Z12.31 Encounter for screening mammogram for malignant neoplasm of breast (principal) | CPT/HCPCS: 77063; 77067 ==

== ENCOUNTER 2024-02-26 21:37 | Emergency (ER) | payer BC, SELFPAY ==
--- OUTSIDE RECORDS SUMMARY | 2024-02-26 21:39 | XMS_ITS ---
Author Name [facility] Organization Unknown History of Medication Use Medication Directions Dispensed Refills Start Date End Date Stat clindamycin (CLEOCIN) 300 MG capsule Take 2 capsules (600 mg total) by mouth Pre-Medication. Take 1 dose 1 hour prior to dental procedure 08/02/2023 active ondansetron (ZOFRAN-ODT) 4 MG disintegrating tablet Take 1 tablet (4 mg total) by mouth 3 times daily (every 8 hours) as needed for nausea or vomiting. Place tablet on tongue to dissolve. 06/23/2023 active oxyCODONE (ROXICODONE) 5 MG immediate release tablet Take 1 tablet (5 mg total) by mouth 4 times daily (every 6 hours) as needed for severe pain. Take 1-2 tabs by mouth every 4-6 hours as needed for pain. This is a 1 week supply. Max Daily Amount: 20 mg 06/16/2023 active oxyCODONE (ROXICODONE) 5 MG immediate release tablet Take 1-2 tablets (5-10 mg total) by mouth Every 4 (four) to 6 (six) hours as needed for severe pain. Take 1-2 tabs by mouth every 4-6 hours as needed for pain. This is a 1 week supply. Max Daily Amount: 60 mg 06/16/2023 aborted meloxicam (MOBIC) 15 MG tablet Take 1 tablet (15 mg total) by mouth daily. Take with food in the morning 06/16/2023 active sulfamethoxazole-trim ethoprim (BACTRIM DS,SEPTRA DS) 800-160 MG per tablet Take 1 tablet by mouth 2 (two) times a day. 06/16/2023 active aspirin enteric coated (ECOTRIN LOW STRENGTH) 81 MG EC tablet Take 1 tablet (81 mg total) by mouth 2 times a day. 06/16/2023 active acetaminophen (TYLENOL) 500 MG tablet Take 2 tablets (1,000 mg total) by mouth 3 times daily (every 8 hours). 06/16/2023 active famotidine (PEPCID) 20 MG tablet Take 1 tablet (20 mg total) by mouth daily. 06/16/2023 active methocarbamol (ROBAXIN) 750 MG tablet Take 1 tablet (750 mg total) by mouth 3 times daily (every 8 hours) as needed for muscle spasms. 06/16/2023 active senna-docusate (SENNA-S) 8.6-50 MG Take 1 tablet by mouth daily. 06/16/2023 active betamethasone acetate-betamethasone sodium phosphate (CELESTONE) injection 12 mg 12 mg, Intra-articular, Once PRN Procedure, Starting on Sat03/13/23 at 1115, For 1 dose 03/16/2023 completed diclofenac enteric coated (VOLTAREN) 75 MG EC tablet Take 1 tablet (75 mg total) by mouth 2 (two) times a day with meals. Administer with food avoid GI upset. 04/10/2023 active Problems Problem Status Onset Date Problem Type Date of Resoluti on Source Status post left knee replacement active EncounterDiagnosisAct HH CCT
--- OUTSIDE RECORDS SUMMARY | 2024-02-26 21:39 | XMS_ITS | Continuity of Care Document ---
Author Organization [facility] Address [address] [place] [address] Phone Care Team Providers Care Doorperson Name Role Phone Ce OD, Yareli Unavailable Unavailable Allergies, Adverse Reactions, Alerts Substance Reaction Status Criticality No Known Allergies Active No Inform ation Medications Medication Instructions Dosage Effective Dates (start - stop) Status Comments ZYRTEC (unknown strength) Not Available - Active BENADRYL (unknown strength) Not Available - Active FLONASE ALLERGY RELIEF (unknown strength) Not Available - Active CLARITIN (unknown strength) Not Available - Active PEPCID (unknown strength) Not Available - Active SYNTHROID (unknown strength) Not Available - Active XYZAL (unknown strength) Not Available - Active Procedures Procedure Date REFRACTION Routine Vision exam Routine ophthalmological exa Routine ophthalmological exa Advance Directives Directive Yes / No Effective Date File Name No Information Encounters Encounter Description Practice Location Reason(s) For Visit Diagnoses Date Provider Providers Copied on Encounter [facility], [address], [place], [place], [id number] , [place] tel:[phone] [facility] [place] Decreased vision (chief complaint) Regular astigmatism of both eyesPresbyopia of both eyes 0 Fergason Yareli. [address], [address], [place], [address], [place]. tel:[phone] [facility], [address], [place], [place], [id number] , tel: [phone] [facility] [place] decreased vision distance and near OU (chief complaint) Hyperopia with regular astigmatism, bilateralRegular astigmatism, bilateral 8 [facility], [address], [place], [place], [id number] , [place] tel: [phone] [facility] [place] Decreased vision (chief complaint) AstigmatismMyopia 5 No Information Family History Family Member Type Diagnosis Age At Onset Brother Problem (finding) Keratoconus Immunizations Vaccine Date Status Comments Influenza, seasonal, injectable administe red Source: Other Provider Payers Payer name Insurance type Covered republican ID Authoriza ticristy(s) Vision Service Plan CI [id number] Social History Type Description Quantity Date Captured Comments Alcohol Use Details Unknown Caffeine Use Details Unknown Tobacco Use Status Current non-smoker 20 Smoking Status Never smoker Non-Smoking Tobacco Use Details : No Details Available : No Details Available Sex Female Chief Complaint And Reason For Visit From encounter dated '11/05/2019 10:10'. Decreased vision (chief complaint). Description: The 49 year old female presents for evaluation of Decreased vision in the right eye and left eye. Pt states that her vision has not been good since her last visit. constant feeling of straining. Difficulty reading, finding herself moving small print around to see. Constant headaches behind eyes and tunnel to back of skull. No flashes or floaters OU. Reason For Referral Reason For Referral No Information History Of Present Illness Encounter Date Complaint History Of Prese nt Illness Decreased vision The 49 year old female presents for evaluation of Decreased vision in the right eye and left eye. Pt states that her vision has not been good since her last visit. constant feeling of straining. Difficulty reading, finding herself moving small print around to see. Constant headaches behind eyes and tunnel to back of skull. No flashes or floaters OU. decreased vision dis tance and near OU The 47 year old female presents for evaluation of decreased vision distance and near OU. Pt states that she has noticed that when reading she holds thing out farther OU. Pt states distance is not doing well OU. Denies any pain or irritation OU. Decreased vision The 43 year old female presents for evaluation of Decreased vision. in the right eye and left eye. It occurs when focusing. The onset was gradual. It affects distance vision. The condition is mild. Functional Status Date Functional Assessmen t No Information Instructions Date Instruction Additional Infor shree Impression/Plan RTC 1 year for CEE Related to Hy peropia with regular astigmatism, bilateral Impression/Plan Related to Hyper opia with regular astigmatism, bilateral - Return in 1 year w Stacie Gonzales for Complete Exam. Related to See list of assessments above - New glasses Rx was given today . Related to See list of assessments above Assessments Type Assessment Date assessment Regular astigmatism of both eyes assessment Presbyopia of both eyes 020 Patient Care Teams Name Effective Dates (start - stop) Status Members No Information
[2024-02-26 21:43] VITALS: BP 152/85; PULSE 70; RESP 18; TEMP 36.6; O2SAT 99; BMI 36.0
--- OUTSIDE RECORDS SUMMARY | 2024-02-26 23:33 | XMS_ITS | Continuity of Care Document ---
Author Organization [facility] Address [address] [place] [address] Phone Care Team Providers Care Spray Gun Sizer Name Role Phone Ce OD, Yareli Unavailable [...] Encounter [facility], [address], [place], [place], [id number] , [place] tel:[phone] [facility] [place] Decreased vision (chief complaint) Regular astigmatism of both eyesPresbyopia of both eyes 0 Fergason Yareli. [address], [address], [place], [address], [place]. tel:[phone] [facility], [address], [place], [place], [id number] , tel: [phone] [facility] [place] decreased vision distance and near OU (chief complaint) Hyperopia with regular astigmatism, bilateralRegular astigmatism, bilateral 8 No [facility], [address], [place], [place], [id number] , [place] tel: [phone] [facility] [place] Decreased vision (chief complaint) AstigmatismMyopia 5 No Information Family History Family Member Type Diagnosis Age At Onset Brother Problem (finding) Keratoconus Immunizations Vaccine Date Status Comments Influenza, seasonal, injectable administe red Source: Other Provider Payers Payer name Insurance type Covered democrat ID Authoriza ticristy(s) Vision Service Plan CI [id number] Social History Type Description Quantity Date Captured [...]
== END 2024-02-26 23:41 | disposition left against medical advice (07) ==
LOC: HO.ED 23:31
PROVIDERS: Emergency Provider Emergency Medicine; PCP Internal Medicine
DX: H57.11 Ocular pain, right eye (principal)
CPT/HCPCS: 99281

== ENCOUNTER 2024-02-27 08:02 | Outpatient (AMB) | payer BC, SELFPAY ==
--- NOTE | 2024-02-27 08:23 | MHC.OFFWIV ---
Intake Vital Signs 02/27/24 08:24 Height 5 ft 7 in Weight 240 lb BMI 37.6 BP 148/88 H Blood Pressure Location Lt brachial Position Sitting Pulse 98 Pulse Source Pulse Oximeter Temp 98.3 F Temp Source Oral Pulse Oximetry (%) 96 Oxygen Delivery Method Room Air Intake Visit Reasons: EP Injury to eye from cat Intake Note: Pt is here today c/o her cat scratched her lower Rt cheek last night Patient Tobacco Use Status: Former Tobacco user Allergies ketorolac [From TORADOL] Allergy (Intermediate, Verified 02/27/24 08:26) lowers BP latex Allergy (Unknown, Verified 02/27/24 08:26) Rash penicillin V Allergy (Unknown, Verified 02/27/24 08:) rash Penicillins [PENICILLINS] Allergy (Unknown, Verified 02/27/24 08:) HIVES bandage Allergy (Unknown, Uncoded 02/27/24 08:) rash HPI HPI Comments History of Present Illness Details History of Present Illness - The patient is a 53-year-old female presenting with an eye laceration secondary to a cat scratch. - The incident occurred around 10:30 PM the previous night, for which the patient briefly sought care in an emergency department initially but left due to long wait times. - Significant bleeding occurred upon injury, and the application of ice was necessary to counter swelling. - Itching was immediately experienced, and the eye was found swollen shut by morning. - The patient has taken clindamycin last night (she had abx left over from knee surgery) prophylactically due to a penicillin allergy and a history of knee replacement surgery. - A tetanus booster was viewed as not immediately necessary as the last was given within the last 3 years. Physical Exam General: Cooperative, healthy appearing, comfortable, no acute distress and well developed Orientation: Patient oriented x3 Limitations: No limitations Head: Normal to inspection Ears: Hearing grossly normal bilaterally Nose: Normal external nose present Face and sinus: no lymphadenopathy detected in pre auricular, submandibular or parotid Eyes: right eye has 0.75 linear lac inferior eye, appears to cross tear duct perpendicularly, slight ecchymosis surrounding the area, PERRL, EOM intact, no injection noted, no drainage from the eye Neck: Normal visual inspection and Yes full ROM Respiratory: Normal respiratory effort and able to speak in complete sentences. Skin: as above Neuro: Patient oriented x3 Extremities: Normal to inspection [facility] Medical History (Updated 02/27/24 @ 08:46 by Tere Briones PA-C) Bursitis Perimenopausal Overweight Annual physical exam Anxiety HTN (hypertension) Pelvic pain Surgical History H/O colonoscopy History of oophorectomy, unilateral Hx of carpal tunnel syndrome History of appendectomy Hx of cholecystectomy Family History Mother HTN (hypertension) Son No problems noted. Brother Substance use disorder Social History Housing: House Alcohol intake: never Patient Tobacco Use Status: Former Tobacco user e-Cigarette/Vaping Use: Never Used service: No Current occupational status: employed Cognitive needs: No Hearing needs: No Vision needs: Yes Review of Systems Const All systems reviewed & are unremarkable except as noted in HPI and below Physical Exam Vital Signs: Last Vital Signs Temp 98.3 F 02/27/24 08:24 Pulse 98 02/27/24 08:24 BP 148/88 H 02/27/24 08:24 Pulse Ox 96 02/27/24 08:24 Oxygen Delivery Method Room Air 02/27/24 08:24 BMI result Body Mass Index 37.6 Assessment & Plan Assessment & Plan (1) Cat scratch of face: Code(s): S00.81XA - Abrasion of other part of head, initial encounter; W55.03XA - Scratched by cat, initial encounter Qualifiers: Encounter type: initial encounter Qualified Code(s): S00.81XA - Abrasion of other part of head, initial encounter; W55.03XA - Scratched by cat, initial encounter Plan: Plan The primary concern of the eyebrow laceration resulting from a cat scratch is addressed by advising against suturing due to its clean alignment and proximity to the tear duct, which could cause further complications. Will rx ppx abs, no infection signs or lymphadenopathy is present. Observations for cat scratch disease and patient education on this potential condition are provided. The plan includes local cleaning of the wound with iodine in the clinic and maintained moisture facilitated by Aquaphor application twice daily. The patient is advised on urgent ophthalmological evaluation to assess tear duct damage. Protective habits include wound cleansing with soap and securing the area from further irritation. Patient was informed and verbally consented to the use of an ambient scribe for clinic note documentation during this visit. Medications: New azithromycin For 250 mg dose pack: take 500 mg today (day 1), then 250 mg for 4 days (days 2-5) orally; 6 tabs 0RF Coding Level of Care Code Est Pt Level 3 (94300) Diagnoses Cat scratch of face, initial encounter S00.81XA; W55.03XA Encounter type: initial encounter
[2024-02-27 08:24] VITALS: BP 148/88; PULSE 98; TEMP 36.8; O2SAT 96; BMI 37.6
== END 2024-02-27 09:18 | disposition home or self-care (01) ==
PROVIDERS: PCP Internal Medicine; Visit Provider Physician Assistant
DX: S00.81XA Abrasion of other part of head, initial encounter (principal); W55.03XA Scratched by cat, initial encounter

== ENCOUNTER → 2024-02-27 08:02 | Outpatient (BNVA) | payer BC, SELFPAY | PROVIDERS: PCP Internal Medicine; Visit Provider Physician Assistant ==

== ENCOUNTER 2024-04-04 09:10 | Outpatient (AMB) | payer BC, SELFPAY ==
--- OUTSIDE RECORDS SUMMARY | 2024-04-04 09:13 | XMS_ITS | Encounter Summary ---
Author Organization [facility] Address [address] [place] [address] Care Team Providers Care Oil Heater Installer Name Role Phone Flora Villa MD Primary Care Provider [phone] Encounter Details Date Type Department Care Team (Late st Contact Info) Description 04/10/2023 Scanned Document Orthopedic [facility] [address] [place] [address] Sp Mantilla MD [address] [place] [address] Social History Tobacco Use Types Packs/Day Years Used Date Smoking Tobacco: Never Assessed Sex and Gender Information Value Date Recorded Sex Assigned at Female 03/18/2023 3:17 PM EST Gender Identity Female 03/18/2023 3:17 PM EST Sexual Orientation Asexual 03/18/2023 3: 17 PM EST documented as of this encounter Plan of Treatment Upcoming Encounters Date Type Department Care Team (Late st Contact Info) Description 05/27/2024 11:00 AM EDT Office Visit Orthopedic [facility] [address] [place], [place] [phone] Sp Mantilla MD 499 [facility] [address] [place] [address] documented as of this encounter Visit Diagnoses Not on filedocumented in this encounter Care Teams Oil Heater Installer Relationship Specialty Start Date End Date Flora Villa MD [address] [place] [address] PCP - General 03/14/23 documented as of this encounter
--- OUTSIDE RECORDS SUMMARY | 2024-04-04 09:13 | XMS_ITS | Encounter Summary ---
Author Organization [facility] Address [address] [place] [address] Care Team Providers Care Health And Wellness Advisor Name Role Phone Flora Villa MD Primary Care Provider [phone] Encounter Details Date Type Department Care Team (Late st Contact Info) Description 04/10/2023 Scanned Document Orthopedic [facility] [address] [place] [address] Sp Mantilla MD [address] [place] [address] Social History Tobacco Use Types Packs/Day Years [...] 05/27/2024 11:00 AM EDT Office Visit Orthopedic [facility] [address] [place], [place] [phone] Sp Mantilla MD [address] [facility] [address] [place] [address] documented as of this encounter Visit Diagnoses Not on filedocumented in this encounter Care Teams Health And Wellness Advisor Relationship Specialty Start Date End Date Flora Villa MD [address] [facility] [place] [address] PCP - General 03/14/23 documented as of this encounter
--- OUTSIDE RECORDS SUMMARY | 2024-04-04 09:13 | XMS_ITS | Encounter Summary ---
Author Organization [facility] Address [address] [place] [address] Care Team Providers Care Astrobiologist Name Role Phone Flora Villa MD Primary Care Provider [phone] Encounter Details Date Type Department Care Team (Late st Contact Info) Description 03/21/2023 Scanned Document Orthopedic [address] [phone] Sp Mantilla MD [address] [facility] [address] [place] [address] Social History Tobacco Use Types Packs/Day Years [...] 05/27/2024 11:00 AM EDT Office Visit Orthopedic [address] [phone] Sp Mantilla MD [address] [place] [address] documented as of this encounter Visit Diagnoses Not on filedocumented in this encounter Care Teams Astrobiologist Relationship Specialty Start Date End Date Flora Villa MD [address] [facility] [address] PCP - General 03/14/23 documented as of this encounter
--- OUTSIDE RECORDS SUMMARY | 2024-04-04 09:13 | XMS_ITS | Clinical Summary ---
Author Organization [facility] Address [address] [place] [address] Care Team Providers Care Community Service Technician Name Role Phone Flora Villa MD Primary Care Provider [phone] Allergies Active Allergy Reactions Criticality Noted Date Comments Latex Hives Medium 03/13/2023 Penicillins Hives Medium 03/13/2023 Medications Medication Sig Dispensed Refills Start Date End Date Status diclofenac enteric coated (VOLTAREN) 75 MG EC tabletIndications:Pr imary osteoarthritis of left knee Take 1 tablet (75 mg total) by mouth 2 (two) times a day with meals. Administer with food avoid GI upset. 180 tablet 04/01/2023 Active acetaminophen (TYLENOL) 500 MG tabletIndications:Pr imary osteoarthritis of left knee Take 2 tablets (1,000 mg total) by mouth 3 times daily (every 8 hours). 120 tablet 06/10/2023 Active aspirin enteric coated (ECOTRIN LOW STRENGTH) 81 MG EC tabletIndications:Pr imary osteoarthritis of left knee Take 1 tablet (81 mg total) by mouth 2 times a day. 56 tablet 06/10/2023 Active senna-docusate (SENNA-S) 8.6-50 MGIndications:Primar y osteoarthritis of left knee Take 1 tablet by mouth daily. 14 tablet 06/10/2023 Active ondansetron (ZOFRAN-ODT) 4 MG disintegrating tabletIndications:Pr imary osteoarthritis of left knee Take 1 tablet (4 mg total) by mouth 3 times daily (every 8 hours) as needed for nausea or vomiting. Place tablet on tongue to dissolve. 20 tablet 1 06/15/2023 Active clindamycin (CLEOCIN) 300 MG capsuleIndications:S tatus post left knee replacement Take 2 capsules (600 mg total) by mouth Pre-Medication. Take 1 dose 1 hour prior to dental procedure 8 capsule 07/31/2023 07/30/2024 Active Social History Tobacco Use Types Packs/Day Years Used Date Smoking Tobacco: Never Assessed Sex and Gender Information Value Date Recorded Sex Assigned at Female 03/18/2023 3:17 PM EST Gender Identity Female 03/18/2023 3:17 PM EST Sexual Orientation Asexual 03/18/2023 3: 17 PM EST Plan of Treatment Upcoming Encounters Date Type Department Care Team (Late st Contact Info) Description 05/27/2024 11:00 AM EDT [facility] Visit [facility] [address] [place] [address] Sp Mantilla MD [address] [place] [address] [address] [place], [place] [address] Health Maintenance Due Date Last Done Comments Hepatitis C Virus Screening 1972 HIV Screening 1985 DTaP/Tdap/Td Vaccines (1 - Tdap) 09/10/1991 Hepatitis B Vaccines (1 of 3 - 19+ 3-dose series) 09/10/1991 Pap Smear (Ages 21-65) 1993 Mammogram 2012 Colonoscopy 2017 Pneumococcal Vaccines 50+ (1 of 1 - PCV) 2022 Zoster (Shingles) Vaccine (1 of 2) 2022 Influenza Vaccine 09/19/2023 COVID-19 Vaccine (1 - 2023-2 5 season) 2023 Pneumococcal Vaccine: Pediat mary ann (0-5 Years) and At-Risk Patients (6 to 49 Years) Aged Out No longer eligible b ased on patient's age to complete this topic Care Teams Community Service Technician Relationship Specialty Start Date End Date Flora Villa MD [address] [place] [address] PCP - General 03/14/23
--- OUTSIDE RECORDS SUMMARY | 2024-04-04 09:13 | XMS_ITS | Encounter Summary ---
Author Organization [facility] Address [address] [place] [address] Care Team Providers Care Calender Runner Name Role Phone Flora Villa MD Primary Care Provider [phone] Encounter Details Date Type Department Care Team (Late st Contact Info) Description 04/10/2023 Scanned Document Orthopedic [facility] [address] [place] [address] Sp Mantilla MD [address] [place] [address] Social History Tobacco Use Types Packs/Day Years [...] 05/27/2024 11:00 AM EDT Office Visit Orthopedic [facility] [address] [place], [place] [phone] Sp Mantilla MD 499 [facility] [address] [place] [address] documented as of this encounter Visit Diagnoses Not on filedocumented in this encounter Care Teams Calender Runner Relationship Specialty Start Date End Date Flora Villa MD [address] [place] [address] PCP - General 03/14/23 documented as of this encounter
--- OUTSIDE RECORDS SUMMARY | 2024-04-04 09:13 | XMS_ITS | Encounter Summary ---
Author Organization [facility] Address [address] [place] [address] Care Team Providers Care Echo Technologist Name Role Phone Flora Villa MD Primary Care Provider [phone] Encounter Details Date Type Department Care Team (Late st Contact Info) Description 03/21/2023 Telephone Orthopedic [place] [phone] [place] PA-C 499 [facility] [address] [place] [address] Social History Tobacco Use Types Packs/Day Years [...] 05/27/2024 11:00 AM EDT Office Visit Orthopedic [address] [phone] Sp Mantilla MD 499 [facility] [address] [place] [address] documented as of this encounter Visit Diagnoses Not on filedocumented in this encounter Care Teams Echo Technologist Relationship Specialty Start Date End Date Flora Villa MD 262 [facility] [place] [address] PCP - General 03/14/23 documented as of this encounter
--- OUTSIDE RECORDS SUMMARY | 2024-04-04 09:13 | XMS_ITS | Encounter Summary ---
Author Organization [facility] Address [address] [place] [address] Care Team Providers Care Outpatient Psychiatrist Name Role Phone Flora Villa MD Primary Care Provider [phone] Encounter Details Date Type Department Care Team (Late st Contact Info) Description 04/25/2023 Scanned Document Orthopedic [address] [phone] Sp Mantilla MD [address] [facility] [address] [place] [address] Social History Tobacco Use Types Packs/Day Years [...] 05/27/2024 11:00 AM EDT Office Visit Orthopedic [address] [phone] Sp Mantilla MD [address] [place] [address] documented as of this encounter Visit Diagnoses Not on filedocumented in this encounter Care Teams Outpatient Psychiatrist Relationship Specialty Start Date End Date Flora Villa MD 262 [facility] [place] [address] PCP - General 03/14/23 documented as of this encounter
--- OUTSIDE RECORDS SUMMARY | 2024-04-04 09:13 | XMS_ITS | Encounter Summary ---
Author Organization [facility] Address [address] [place] [address] Care Team Providers Care Director Of Curriculum And Instruction Name Role Phone Flora Villa MD Primary Care Provider [phone] Encounter Details Date Type Department Care Team (Late st Contact Info) Description 06/04/2023 Scanned Document Orthopedic [address] [phone] Sp Mantilla MD 499 [facility] [address] [place] [address] Social History Tobacco Use Types Packs/Day Years [...] 05/27/2024 11:00 AM EDT Office Visit Orthopedic [address] [phone] Sp Mantilla MD 499 [facility] [address] [place] [address] documented as of this encounter Visit Diagnoses Not on filedocumented in this encounter Care Teams Director Of Curriculum And Instruction Relationship Specialty Start Date End Date Flora Villa MD 262 [facility] [place] [address] PCP - General 03/14/23 documented as of this encounter
--- OUTSIDE RECORDS SUMMARY | 2024-04-04 09:13 | XMS_ITS | Encounter Summary ---
Author Organization [facility] Address [address] [place] [address] Care Team Providers Care Superintendent Meters Name Role Phone Flora Villa MD Primary Care Provider [phone] Encounter Details Date Type Department Care Team (Late st Contact Info) Description 04/01/2023 Telephone [facility] [address] [phone] [place] PA-C 499 [facility] [address] [place] [address] Social History Tobacco Use Types Packs/Day Years [...] 11:00 AM EDT [facility] Visit [facility] [address] [phone] Sp Mantilla MD 499 [facility] [address] [place] [address] documented as of this encounter Visit Diagnoses Not on filedocumented in this encounter Care Teams Superintendent Meters Relationship Specialty Start Date End Date Flora Villa MD 262 [facility] [place] [address] PCP - General 03/14/23 documented as of this encounter
[2024-04-04 10:19] VITALS: BP 120/82; PULSE 74; RESP 17; TEMP 36.9; O2SAT 98; BMI 36.5
--- NOTE | 2024-04-04 10:19 | MHC.OFFWIV ---
Intake Vital Signs 04/04/24 10:19 Height 5 ft 7 in Weight 233 lb BMI 36.5 BP 120/82 Blood Pressure Location Rt brachial Position Sitting Respiration 17 Pulse 74 Pulse Source Pulse Oximeter Temp 98.5 F Temp Source Oral Pulse Oximetry (%) 98 Oxygen Delivery Method Room Air Intake Visit Reasons: EP Fall (not WC) RT knee pain Intake Note: R knee pain after fall Patient Tobacco Use Status: Former Tobacco user Allergies ketorolac [From TORADOL] Allergy (Intermediate, Verified 04/04/24 10:23) lowers BP latex Allergy (Unknown, Verified 04/04/24 10:23) Rash penicillin V Allergy (Unknown, Verified 04/04/24 10:23) rash Penicillins [PENICILLINS] Allergy (Unknown, Verified 04/04/24 10:23) HIVES bandage Allergy (Unknown, Uncoded 04/04/24 10:23) rash HPI EP Fall (not WC) RT knee pain HPI Details Pt is here today took a fall while walking, landed on Rt knee painful yesterday. Was able to bear weight after fall. [facility] Medical History (Updated 04/04/24 @ 11:10 by Sergio Nguyen MD) Bursitis Perimenopausal Overweight Annual physical exam Anxiety HTN (hypertension) Pelvic pain Surgical History H/O colonoscopy History of oophorectomy, unilateral Hx of carpal tunnel syndrome History of appendectomy Hx of cholecystectomy Family History Mother HTN (hypertension) Son No problems noted. Brother Substance use disorder Social History Housing: House Alcohol intake: never Patient Tobacco Use Status: Former Tobacco user e-Cigarette/Vaping Use: Never Used service: No Current occupational status: employed Cognitive needs: No Hearing needs: No Vision needs: Yes Review of Systems Const Denies chills, Denies fatigue, Denies fever(s), Denies headache(s) and Denies weakness ENT Denies dizziness and Denies headache(s) Card Denies dyspnea Resp Denies cough, Denies dyspnea, Denies wheezing and Denies other ( shortness of breath) Musc Denies numbness and Denies tingling Neuro Denies dizziness, Denies headache(s), Denies numbness, Denies tingling, Denies paresthesias and Denies weakness Psych Denies anxiety and Denies depression Endo Denies fatigue Aller/Immun Denies wheezing Physical Exam Vital Signs: Last Vital Signs Temp 98.5 F 04/04/24 10:19 Pulse 74 04/04/24 10:19 Resp 17 04/04/24 10:19 BP 120/82 04/04/24 10:19 Pulse Ox 98 04/04/24 10:19 Oxygen Delivery Method Room Air 04/04/24 10:19 BMI result Body Mass Index 36.5 Const General: no acute distress and well developed Nutritional Appearance: well nourished Orientation/consciousness: patient oriented x3 HEENT Head: Yes normocephalic and Yes atraumatic Eyes General: appearance normal, both eyes and all related structures Pupils: Equal, round and reactive pupils present EOM: EOMs intact bilaterally Resp Effort & Inspection: normal respiratory effort Neuro General: patient oriented x3 and gait normal Cranial nerves: Yes Equal, round and reactive pupils present Extrem Other: R Knee: Difficulty with weight-bearing and patient is limping markedly Mild swelling/effusion. Minimal joint space tenderness but + pain and apprehension with Marco Antonio test Other testing negative Psych Affect: normal affect Assessment & Plan Assessment & Plan (1) Right knee pain: Code(s): M25.561 - Pain in right knee Plan: Marco Antonio test of right knee with pain and apprehension Due to her right knee x-ray: Joint spaces are preserved and articulating surfaces appear intact. She does have a density above her right patella which does not appear acute. No obvious fracture of knee joint Concern for meniscal injury/tear Use knee brace Use crutches for minimal weight-bearing Ice and elevation NSAIDs for pain control and inflammation Short course of tramadol for severe breakthrough pain for the next couple of days Referred to her ortho specialist Dr. Mantilla (2) Acute meniscal injury of right knee: Code(s): S83.8X1A - Sprain of other specified parts of right knee, initial encounter Plan: As above Orders: Referrals Orthopedics Referral M25.561 - Pain in right knee Medications: New tramadol 50 mg PO BID 3 days PRN 6 tabs 0RF pain meloxicam 15 mg PO DAILY 30 days 30 tabs 2RF Coding Level of Care Code Est Pt Level 3 (25262) Diagnoses Right knee pain M25.561 Acute meniscal injury of right knee S83.8X1A
== END 2024-04-04 11:40 | disposition home or self-care (01) ==
PROVIDERS: PCP Internal Medicine; Visit Provider Family Medicine
DX: M25.561 Pain in right knee (principal); S83.8X1A Sprain of other specified parts of right knee, initial encounter

== ENCOUNTER → 2024-04-04 09:10 | Outpatient (BNVA) | payer BC, SELFPAY | PROVIDERS: PCP Internal Medicine ==

== ENCOUNTER 2024-04-04 10:56 | Outpatient (REF) | payer BC, SELFPAY ==
--- NOTE | ~2024-04-04 | XR_ITS ---
CLINICAL HISTORY: M25.561 - Pain in right knee 4 view right knee Comparison: None Findings: Bones intact. No dislocations. Minimal medial compartment joint space narrowing with small peripheral osteophytes noted. Calcified loose body within the suprapatellar knee joint. No radiopaque foreign body. IMPRESSION: 1. No acute findings. 2. Calcified loose body within the right knee joint. 3. Minimal medial compartment joint space narrowing. This document has been electronically signed by: Reed Casiano MD on 04/04/2024 11:41:36
--- OUTSIDE RECORDS SUMMARY | 2024-04-04 10:59 | XMS_ITS | Clinical Summary ---
Author Organization [facility] Address [address] [place] [address] Care Team Providers Care Nozzle Tender Name Role Phone Flora Villa MD Primary Care Provider [phone] Allergies Active Allergy Reactions Criticality Noted Date [...] 11:00 AM EDT Office Visit [facility] [address] [place] [address] Sp Mantilla MD [address] [place] [address] [address] [place], [place] [id number] Health Maintenance Due Date Last Done Comments [...] age to complete this topic Care Teams Nozzle Tender Relationship Specialty Start Date End Date Flora Villa MD [address] [place] [address] PCP - General 03/14/23
--- OUTSIDE RECORDS SUMMARY | 2024-04-04 10:59 | XMS_ITS | Encounter Summary ---
Author Organization [facility] Address [address] [place] [address] Care Team Providers Care Industrial Psychologist Name Role Phone Flora Villa MD Primary Care Provider [phone] Encounter Details Date Type Department Care Team (Late st Contact Info) Description 04/01/2023 Telephone [facility] [address] [phone] [place] PA-C [address] [facility] [address] [place] [address] Social History Tobacco Use Types Packs/Day Years [...] 11:00 AM EDT [facility] [address] [phone] Sp Mantilla MD [address] [facility] [address] [place] [address] documented as of this encounter Visit Diagnoses Not on filedocumented in this encounter Care Teams Industrial Psychologist Relationship Specialty Start Date End Date Flora Villa MD [address] [facility] [place] [address] PCP - General 03/14/23 documented as of this encounter
--- OUTSIDE RECORDS SUMMARY | 2024-04-04 10:59 | XMS_ITS | Encounter Summary ---
Author Organization [facility] Address [address] [place] [address] Care Team Providers Care Watch Parts Inspector Name Role Phone Flora Villa MD Primary Care Provider [phone] Encounter Details Date Type Department Care Team (Late st Contact Info) Description 04/25/2023 Scanned Document Orthopedic [address] [phone] Sp Mantilla MD 499 [facility] [address] [place] [address] Social History Tobacco Use Types Packs/Day Years [...] 05/27/2024 11:00 AM EDT Office Visit Orthopedic [address] [phone] Sp Mantilla MD [address] [place] [address] documented as of this encounter Visit Diagnoses Not on filedocumented in this encounter Care Teams Watch Parts Inspector Relationship Specialty Start Date End Date Flora Villa MD [address] [facility] [place] [address] PCP - General 03/14/23 documented as of this encounter
--- OUTSIDE RECORDS SUMMARY | 2024-04-04 10:59 | XMS_ITS | Encounter Summary ---
Author Organization [facility] Address [address] [place] [address] Care Team Providers Care Active Directory Specialist Name Role Phone Flora Villa MD Primary Care Provider [phone] Encounter Details Date Type Department Care Team (Late st Contact Info) Description 04/10/2023 Scanned Document Orthopedic [facility] [address] [place] [phone] Sp Mantilla MD [address] [place] [address] Social History Tobacco Use Types Packs/Day Years [...] 05/27/2024 11:00 AM EDT Office Visit [facility]opedic [facility] [address] [place], [place] [phone] Sp Mantilla MD 499 [facility] [address] [place] [address] documented as of this encounter Visit Diagnoses Not on filedocumented in this encounter Care Teams Active Directory Specialist Relationship Specialty Start Date End Date Flora Villa MD [address] [place] [place] [address] PCP - General 03/14/23 documented as of this encounter
--- OUTSIDE RECORDS SUMMARY | 2024-04-04 10:59 | XMS_ITS | Encounter Summary ---
Author Organization [facility] Address [address] [place] [address] Care Team Providers Care Wood Veneer Taper Name Role Phone Flora Villa MD Primary Care Provider [phone] Encounter Details Date Type Department Care Team (Late st Contact Info) Description 03/21/2023 Telephone Orthopedic [place] [phone] [place] PA-C 499 [facility] [address] [place] [address] Social History Tobacco Use Types Packs/Day Years [...] 05/27/2024 11:00 AM EDT Office Visit Orthopedic [address] [phone] Sp Mantilal MD 499 [facility] [address] [place] [address] documented as of this encounter Visit Diagnoses Not on filedocumented in this encounter Care Teams Wood Veneer Taper Relationship Specialty Start Date End Date Flora Villa MD 262 [facility] [place] [address] PCP - General 03/14/23 documented as of this encounter
--- OUTSIDE RECORDS SUMMARY | 2024-04-04 10:59 | XMS_ITS | Encounter Summary ---
Author Organization [facility] Address [address] [place] [address] Care Team Providers Care Button Buttonhole Marker Name Role Phone Flora Villa MD Primary Care Provider [phone] Encounter Details Date Type Department Care Team (Late st Contact Info) Description 03/21/2023 Scanned Document Orthopedic [address] [phone] Sp Mantilla MD [address] [facility] [address] [place] [address] Social History Tobacco Use Types Packs/Day Years [...] 05/27/2024 11:00 AM EDT Office Visit Orthopedic [address] [phone] Sp Mantilla MD [address] [place] [address] documented as of this encounter Visit Diagnoses Not on filedocumented in this encounter Care Teams Button Buttonhole Marker Relationship Specialty Start Date End Date Flora Villa MD 262 [facility] [place] [address] PCP - General 03/14/23 documented as of this encounter
--- OUTSIDE RECORDS SUMMARY | 2024-04-04 10:59 | XMS_ITS | Encounter Summary ---
Author Organization [facility] Address [address] [place] [address] Care Team Providers Care Scoop Operator Name Role Phone Folra Villa MD Primary Care Provider [phone] Encounter Details Date Type Department Care Team (Late st Contact Info) Description 06/04/2023 Scanned Document Orthopedic [address] [phone] Sp Mantilla MD 499 [facility] [address] [place] [address] Social History Tobacco Use Types Packs/Day Years [...] 05/27/2024 11:00 AM EDT Office Visit Orthopedic [address] [phone] Sp Mantilla MD 499 [facility] [address] [place] [address] documented as of this encounter Visit Diagnoses Not on filedocumented in this encounter Care Teams Scoop Operator Relationship Specialty Start Date End Date Flora Villa MD 262 [facility] [place] [address] PCP - General 03/14/23 documented as of this encounter
--- OUTSIDE RECORDS SUMMARY | 2024-04-04 10:59 | XMS_ITS | Encounter Summary ---
Author Organization [facility] Address [address] [place] [address] Care Team Providers Care Laborer Demolition Name Role Phone Flora Villa MD Primary Care Provider [phone] Encounter Details Date Type Department Care Team (Late st Contact Info) Description 04/10/2023 Scanned Document Orthopedic [facility] [address] [place] [address] Sp Mantilla MD 499 [place] [address] Social History Tobacco Use Types Packs/Day Years [...] 05/27/2024 11:00 AM EDT Office Visit Orthopedic [facility] [address] [place], [place] [phone] Sp Mantilla MD 499 [facility] [address] [place] [address] documented as of this encounter Visit Diagnoses Not on filedocumented in this encounter Care Teams Laborer Demolition Relationship Specialty Start Date End Date Flora Villa MD [address] [place] [address] PCP - General 03/14/23 documented as of this encounter
--- OUTSIDE RECORDS SUMMARY | 2024-04-04 10:59 | XMS_ITS | Encounter Summary ---
Author Organization [facility] Address [address] [place] [address] Care Team Providers Care Skid Worker Name Role Phone Flora Villa MD Primary Care Provider [phone] Encounter Details Date Type Department Care Team (Late st Contact Info) Description 04/10/2023 Scanned Document Orthopedic [facility] [address] [place] [phone] Sp Mantilla MD [address] [place] [address] Social History Tobacco Use Types Packs/Day Years [...] 05/27/2024 11:00 AM EDT Office Visit Orthopedic [facility] [address] [place], [place] [phone] Sp Mantilla MD 499 [facility] [address] [place] [address] documented as of this encounter Visit Diagnoses Not on filedocumented in this encounter Care Teams Skid Worker Relationship Specialty Start Date End Date Flora Villa MD [address] [facility] [place] [address] PCP - General 03/14/23 documented as of this encounter
== END 2024-04-04 10:57 | disposition home or self-care (01) ==
LOC: HO.HMGCX 10:56
PROVIDERS: PCP Internal Medicine; Visit Provider Nurse Practitioner Family
DX: M25.561 Pain in right knee (principal)
CPT/HCPCS: 73564

== ENCOUNTER → 2024-04-04 10:59 | Outpatient (BNV) | payer BC, SELFPAY | PROVIDERS: PCP Internal Medicine; Visit Provider Radiology Vascular & Interventional Radiology | DX: M23.41 Loose body in knee, right knee (principal) | CPT/HCPCS: 73564 ==

== ENCOUNTER → 2024-04-23 09:45 | Outpatient (BNVA) | payer BC, SELFPAY | PROVIDERS: PCP Internal Medicine ==

== ENCOUNTER 2024-04-23 09:52 | Outpatient (AMB) | payer BC, SELFPAY ==
[2024-04-23 09:53] VITALS: BP 126/82; PULSE 93; RESP 20; TEMP 36.9; O2SAT 98; BMI 35.7
--- NOTE | 2024-04-23 09:53 | A.OFFPC_ITS ---
Vital Signs 04/23/24 09:53 Height 5 ft 7 in Weight 228 lb BMI 35.7 BP 126/82 Blood Pressure Location Lt brachial Position Sitting Respiration 20 Pulse 93 Pulse Source Pulse Oximeter Temp 98.5 F Temp Source Oral Pulse Oximetry (%) 98 Oxygen Delivery Method Room Air Intake Visit Reasons: anxiety attack Intake Note: Pt is here today for a sick visit. Pt c/o anxiety attack. Allergies ketorolac [From TORADOL] Allergy (Intermediate, Verified 04/04/24 10:23) lowers BP latex Allergy (Unknown, Verified 04/04/24 10:23) Rash penicillin V Allergy (Unknown, Verified 04/04/24 10:23) rash Penicillins [PENICILLINS] Allergy (Unknown, Verified 04/04/24 10:23) HIVES bandage Allergy (Unknown, Uncoded 04/04/24 10:23) rash Medication List - Last Reconciled 04/23/24 by Flora Villa MD acetaminophen (Tylenol Extra Strength) 500 mg PO Q6H PRN citalopram 20 mg PO DAILY conjugated estrogens (Premarin) 6.25 mg PO DAILY diclofenac potassium 25 mg PO BID hydroxyzine HCl 10 mg PO BEDTIME lisinopril-hydrochlorothiazide 10-12.5 mg 2 tabs PO DAILY meloxicam 15 mg PO DAILY 30 days multivitamin (Daily Multi-Vitamin tablet) 1 tab PO DAILY omeprazole 10 mg PO DAILY ondansetron HCl 4 mg PO BEDTIME PRN 4 days Zepbound (tirzepatide (weight loss)) 5 mg (0.5 mL) subcut QWEEK NS Tobacco use date assessed: 05/01/23 Dental Screening Dental Screen Date: 05/01/23 HPI anxiety attack HPI0 Details Patient presents complaining of increased anxiety for the last few weeks due to 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 Patient denies depression suicide ideation but has difficulty concentrating at work and has been crying a lot and feeling angry. FOR[facility]LY [facility] Medical History Bursitis Perimenopausal Overweight Annual physical exam Anxiety HTN (hypertension) Pelvic pain Surgical History H/O colonoscopy History of oophorectomy, unilateral Hx of carpal tunnel syndrome History of appendectomy Hx of cholecystectomy Family History Mother HTN (hypertension) Son No problems noted. Brother Substance use disorder Social History Housing: House Alcohol intake: never Patient Tobacco Use Status: Former Tobacco user e-Cigarette/Vaping Use: Never Used service: No Current occupational status: employed Cognitive needs: No Hearing needs: No Vision needs: Yes Questionnaire Thrive Questionnaire Date Thrive assessed: 05/01/23 ALINE-7 AMB Questionnaire ALINE-7 Date ALINE - 7 assessed: 05/01/23 Source: Developed by Drs. Jackson Caraballo, Mercedes Rg, Joaquin Alvarado and colleagues, with an educational eleuterio from [employer]. Review of Systems Const All systems reviewed & are unremarkable except as noted in HPI and below ENT Reports no additional complaints Card Reports no additional complaints Resp Reports no additional complaints GI Reports no additional complaints Reports no additional complaints Physical exam (Primary Care) Vital Signs: Last Vital Signs Temp 98.5 F 04/23/24 09:53 Pulse 93 04/23/24 09:53 Resp 20 04/23/24 09:53 BP 126/82 04/23/24 09:53 Pulse Ox 98 04/23/24 09:53 Oxygen Delivery Method Room Air 04/23/24 09:53 BMI result Body Mass Index 35.7 Tobacco/Smoking Status: Tobacco use Status Tobacco use date assessed 05/01/23 04/23/24 09:58 Patient Tobacco Use Status Former Tobacco user 04/23/24 09:58 e-Cigarette/Vaping Use Never Used 04/23/24 09:58 Thrive Assessment: Date of Thrive Assessment Date Thrive assessed 05/01/23 04/23/24 09:58 Const General: no acute distress HENMT Head: Yes normal to inspection Neck Neck: Yes supple Resp Effort & Inspection: normal respiratory effort Auscultation: clear to auscultation bilaterally Cardio Rhythm: regular rhythm Heart sounds: S1 normal heart sound present and S2 normal heart sound present GI Inspection: Yes normal to inspection Palpation (GI): Soft to palpation Coding Level of Care Code Est Pt Level 3 (72661) Diagnoses Anxiety F41.9 Assessment & Plan Assessment & Plan (1) Anxiety: Code(s): F41.9 - Anxiety disorder, unspecified Category: Medical Plan: Stress management mindfulness discussed with the patient she will be referred to a counseling. Out of work note until May 04 given to the patient. She was advised to increase hydroxyzine to 20 mg up to 3 times a day as needed
== END 2024-04-23 11:29 | disposition home or self-care (01) ==
LOC: HO.HMCC 09:52
PROVIDERS: PCP Internal Medicine; Visit Provider Internal Medicine
DX: F41.9 Anxiety disorder, unspecified (principal)

== ENCOUNTER 2024-10-01 07:26 | Outpatient (REF) | payer BC, SELFPAY ==
--- NOTE | ~2024-10-01 | MM_ITS ---
EXAMINATION: MM SCREENING DIGITAL BREAST TOMOSYNTHESIS, BILATERAL CLINICAL INFORMATION: Screening. Asymptomatic. COMPARISON: Comparison made to multiple prior, most recent September 26, 2023, and most remote June 05, 2017. TECHNIQUE: Digital breast tomosynthesis is performed in both the craniocaudal and mediolateral oblique views along with computer-aided detection (CAD). FINDINGS: BREAST COMPOSITION: There are scattered areas of fibroglandular density (ACR BI-RADS breast composition Category b). BILATERAL BREASTS: No significant masses, suspicious calcifications or other abnormalities are seen in either breast. MM/MM tomosynthesis screening BI IMPRESSION: BILATERAL BREASTS: Negative, no mammographic evidence of malignancy. Normal interval follow-up is recommended in 12 months. ASSESSMENT: BI-RADS 1 - Negative RECOMMENDATION: Routine annual mammography screening. FOLLOW-UP: 1 year F/U This examination should not preclude the clinical evaluation of a suspicious palpable abnormality. This patient's information was entered into a reminder system with a target due date for their next mammogram. Electronically signed by: Javier Muñiz MD 10/05/2024 08:48 PM EDT
--- OUTSIDE RECORDS SUMMARY | 2024-10-01 07:28 | XMS_ITS | Encounter Summary ---
Author Organization [facility] Address [address] [place] [address] Care Team Providers Care Cereal Supervisor Name Role Phone Flora Villa MD Primary Care Provider [phone] Encounter Details Date Type Department Care Team (Late st Contact Info) Description 06/13/2023 Scanned Document [facility] [address] [place] [phone] Sp Mantilla MD [address] [place] [address] [address] [place] [address] Social History Tobacco Use Types Packs/Day Years Used Date Smoking Tobacco: Never Assessed Comments Unknown Sex and Gender Information Value Date Recorded Sex Assigned at Female 03/18/2023 3:17 PM EST Legal Sex Female 10:18 AM EDT Gender Identity Female 03/18/2023 3:17 PM EST Sexual Orientation Asexual 03/18/2023 3: 17 PM EST documented as of this encounter Plan of Treatment Not on file documented as of this encounter Visit Diagnoses Not on filedocumented in this encounter Care Teams Cereal Supervisor Relationship Specialty Start Date End Date Flora Villa MD [address] [facility] [place] [address] PCP - General 03/14/23 documented as of this encounter
--- OUTSIDE RECORDS SUMMARY | 2024-10-01 07:28 | XMS_ITS | Clinical Summary ---
Author Organization [facility] Address [address] [place] [id number] Phone Care Team Providers Care Color Paste Mixing Supervisor Name Role Phone Flora Villa MD Primary Care Provider [phone] Allergies Active Allergy Reactions Criticality Noted Date Comments Adhesive Hives 06/20/2021 THE GLUE ON BANDAIDS Estradiol Hives 01/16/2018 Latex Hives 01/29/2012 Other reaction(s): hives Other Reaction(s): hives Penicillin 06/20/2021 Other reaction(s): hives Other Reaction(s): hives Penicillins Hives 07/27/2010 Medications multivitamin per tablet Take by mouth. Activ e hydrOXYzine HCl (ATARAX) 10 MG tablet TAKE 1 AND 1/2 TABLETS BY MOUTH AT BEDTIME NEEDED FOR ANXIETY 8 Active levonorgestrel (MIRENA) 20 mcg/24 hr (5 years) intrauterine device 1 each by Intrauterine route. Active ondansetron (ZOFRAN) 8 MG tablet Take 8 mg by mouth as needed. 8 Active lisinopril-hydro CHLOROthiazide (PRINZIDE,ZESTOR ETIC) 10-12.5 mg per tablet Take 2 tablets by mouth daily. 2 Active citalopram (CELEXA) 20 MG tablet Take 20 mg by mouth daily. 2 Active acetaminophen (TYLENOL) 500 MG tablet Take 500 mg by mouth 2 (two) times a day. Twice a day Active estrogens, conjugated, (PREMARIN) 0.625 MG tabletIndication s:Menopause syndrome Take 1 tablet (0.625 mg total) by mouth daily. 90 tablet 5 Active ZEPBOUND 7.5 mg/0.5 mL subcutaneous pen Inject 7.5 mg under the skin every 14 (fourteen) days. Active meloxicam (MOBIC) 15 MG tablet Take 1 tablet by mouth every morning. 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 Menopause syndrome 01/16/2018 Assessment & Plan (06/20/2021 11:22 AM EDT): We discussed Jose's increasing vasomotor symptoms as well as her frustration regarding weight gain and body changes and hair thinning. I advised she follow up with her PCP for possible thyroid screening; she has appointment in early July and will do so. We discussed other strategies to address these concerns including bumping up estradiol dose to help with vasomotor sx, nutritional consult/mentoring and exploring other exercise options to add to daily walking for enjoyment and enhanced metabolic activity. She will embark on this plan and we will follow up in three months. IUD (intrauterine device) in place 06/06/2017 Overview (09/17/2024): Mirena, replaced 09/17/2024 Assessment & Plan (06/20/2021 11:23 AM EDT): We reviewed Mirena as effective delivery system for progesterone,necessary while taking systemic estrogen. This was placed in 2016 so can remain in place through 2022. Resolved Problems Problem Noted Date Diagnosed Date Resolved Date Cyst of right ovary 01/28/2020 07/15/19 25 Overview (01/28/2020): 1.5 cm simple right ovarian cyst on US performed for abdominal pain Women's annual routine gynec ological examination 10/01/2019 06/20/2021 Encounters Date Type Department Care Team Description 09/28/2024 Refill [facility] [address] [place] [address] [place] [address] Barbara Jolly MD Medication Refill 09/17/2024 10:40 AM EDT Office Visit [facility] [address] [place] [address] [place] [address] Barbara Jolly MD Dysplasia of cervix, high grade NAZIA 2 (Primary Dx); IUD (intrauterine device) in place; Encounter for removal and reinsertion of intrauterine contraceptive device 08/18/2024 9:20 AM EDT Procedure visit [facility] [address] [place] [address] [place] [address] Barbara Jolly MD Atypical squamous cells cannot exclude high grade squamous intraepithelial lesion on cytologic smear of cervix (ASC-H) (Primary Dx); Human papilloma virus; IUD (intrauterine device) in place 07/14/2024 2:50 PM EDT Procedure visit [facility] [address] [place] [address] [place] [address] Barbara Jolly MD Encounter for removal and reinsertion of intrauterine contraceptive device (Primary Dx); IUD (intrauterine device) in place; Human papilloma virus; Menopause syndrome from Last 3 Months Immunizations Immunization Administration Dates Next Due Tdap 07/28/2018,05/02/2012 Family History Medical History Relation Comments Hypertension Maternal Grandfather Hypertension Maternal Grandmother Hypertension Mother Relation Status Comments Maternal Grandfather Maternal Grandmother Mother Alive Social History Tobacco Use Types Packs/Day Years Used Date Smoking Tobacco: Former Smokeless Tobacco: Never Tobacco Cessation:Counseling Given: Not Answered Alcohol Use Standard Drinks/Week Comments No 0 (1 standard drink = 0.6 oz pur e alcohol) Education Answer Date Recorded Are you interested in more education? Not on jayce e 06/15/2022 Are you concerned about learning? Not on file 06/15/2022 No 06/15/2022 No 06/15/2022 Digital Access Answer Date Recorded No 07/14/2022 No 07/14/2022 Reliable internet access at home? Not on file 07/14/2022 Device with a working camera? Not on file Comments No Sex and Gender Information Value Date Recorded Sex Assigned at Female 05/16/2023 2:01 PM EDT Legal Sex Female 9:36 AM EST Gender Identity Female 05/16/2023 2:01 PM EDT Sexual Orientation Not on file Occupation Industry Job Start Date Job End Date Working Not on file Not on file Not on file Last Filed Vital Signs Vital Sign Reading Time Taken Comments Blood Pressure 120/70 09/17/2024 10:47 AM EDT Pulse - - Temperature - - Respiratory Rate - - Oxygen Saturation - - Inhaled Oxygen Concentration - - Weight 97.1 kg (214 lb) 09/17/2024 10:47 AM EDT Height 170.2 cm (5' 7 ) 09/17/2024 10:47 AM EDT Body Mass Index 33.52 09/17/2024 10:47 AM EDT Plan of Treatment Health Maintenance Due Date Last Done Comments CREATININE LEVEL 1972 LIPID PANEL 1972 POTASSIUM LEVEL 1972 DEPRESSION SCREENING 1984 SMOKING Hx and SMOKELESS TOBACCO SCREENING 1985 HEPATITIS C SCREENING 1990 HIV ONE-TIME SCREENING (18-65 YEARS) 1990 SCREENING FOR DIABETES 09/10/2007 MAMMOGRAM 2012 COLOGUARD 2017 COLONOSCOPY 2017 COLORECTAL CANCER SCREENING 2017 FIT TEST 2017 FOBT 2017 SIGMOIDOSCOPY 2017 VIRTUAL COLONOSCOPY 2017 PNEUMOCOCCAL VACCINES (50+ years) (1 of 1 - PCV) 2022 ZOSTER VACCINES (1 of 2) 2022 COVID-19 VACCINE (1 - season) 2023 PAP SMEAR 07/14/2025 07/14/2024, 03/0 07/2023, 06/20/2021, Additional history exists Adult Td,Tdap Booster 07/28/2028 07/28/2018, 013 IUD 09/17/2032 09/17/2024 HEPATITIS A VACCINES Aged Out No long er eligible based on patient's age to complete this topic HIB VACCINES Aged Out No longer eligi ble based on patient's age to complete this topic MENINGOCOCCAL VACCINES (ACWY) Aged Out No longer eligible based on patient's age to complete this topic MENINGOCOCCAL VACCINES (B) Aged Out N o longer eligible based on patient's age to complete this topic Medical Devices Implanted Type Area On Site Services Specialist Device Identifier Shelf Expiration Date Model / Serial / Lot Iud Implanted: (Quantity not on file) Intrauterine Device Procedures Procedure Name Priority Date/Time Associated Diagnosis Comments ANATOMIC PATHOLOGY Routine 09/17/2024 12 :00 AM EDT ANATOMIC PATHOLOGY Routine 08/18/2024 12 :00 AM EDT PAP TEST Routine 07/14/2024 12:00 AM EDT from Last 3 Months Results * Anatomic Pathology (09/17/2024 12:00 AM EDT) Only the most recent of2 resultswithin the time period is included. 09/17/2024 09/17/2024 3: 04 PM EDT Narrative SEE NARRATIVE - 09/18/2024 12:35 PM EDT [address] [address] Director Stage: Binu Appiah MD Surgical Pathology Report FINAL PATHOLOGIC DIAGNOSIS: A. CERVIX, LEEP CONE BIOPSY: Low-grade squamous intraepithelial lesion, CIN1, focally involving the endocervical margin. B. ENDOCERVICAL CURETTINGS: Scant benign endocervical tissue. Electronically Signed Out By Binu Appiah MD By his/her signature above, the pathologist listed as making the Final Diagnosis certifies that he/she has personally reviewed this case and confirmed or corrected the diagnosis. CLINICAL HISTORY CIN1-2 SPECIMENS SUBMITTED: A: CERVIX, LEEP B: ENDOCERVICAL CURETTINGS GROSS DESCRIPTION A. CERVIX, LEEP: Formalin: Is a 0.9 x 0.6 x 0.5 cm rectangular fragment of thacker mucosa with attached mucus. The mucosa is thacker-white and smooth. The nonmucosal surfaces are inked, radially sectioned and entirely submitted A1-A3. B. ENDOCERVICAL CURETTINGS: Formalin: Is a 2 cm aggregate of mucus, entirely submitted B1. LT 09/17/2024 Grossing Staff: JOSE R Patient Name: ROSELYN FERNANDO : 1970 (Age: 54) Sex: F Institution: [facility] Location: [facility] Date of Operation: 09/17/2024 Date of Reported: 09/18/2024 12:35 Results To: Barbara Villa MD Barbara Jolly MD PATHOLOGY ORDERABLES Final Result SEE NARRATIVE * (ABNORMAL) Pap Test (07/14/2024 12:00 AM EDT) 07/14/2024 07/15/2024 9:3 5 AM EDT Narrative SEE NARRATIVE - 07/21/2024 2:45 PM EDT [address] [address] Director Stage: Binu Appiah MD ELECTROMEDICAL SERVICE ENGINEER Cytology Report FINAL DIAGNOSIS A. PAP SMEAR (THIN PREP) CE: SPECIMEN ADEQUACY: Satisfactory for evaluation; transformation zone present. INTERPRETATION: EPITHELIAL CELL ABNORMALITY - SQUAMOUS. Atypical squamous cells, cannot exclude high grade squamous intraepithelial lesion. This specimen was analyzed by the automated ThinPrep Imaging System ([employer] and manually rescreened by a i o psychologist and/or pathologist. Electronically Signed Out By: MD Amanda Florian CT([facility]) By his/her signature above, the pathologist listed as making the Final Diagnosis certifies that he/she has personally reviewed this case and confirmed or corrected the diagnosis. The Pap test is a screening test primarily for squamous cancers and precursors and has associated false-negative and false-positive results. New technologies such as liquid-based preparations may decrease but will not eliminate all false-negative results. Regular sampling and follow-up of unexplained clinical signs and symptoms are recommended to minimize false negative results. PROCEDURES/ADDENDA HPV Testing (Requested) Ordered Date: 07/15/2024 A. PAP SMEAR (THIN PREP) CE: High-risk HPV Panel w/ extended genotyping POS HPV 16-NEG HPV 18-NEG HPV 45-NEG HPV 33/58-NEG HPV 31-POS HPV 56/59/66-NEG HPV 51-NEG HPV 52-NEG HPV 35/39/68-NEG Performed by real-time polymerase chain reaction (PCR) at [facility], [address] [place] [address] using the FDA-approved Gendel Onclarity HPV Assay with extended genotyping. Uses of the assay in scenarios other than those approved by the FDA should be considered off-label use. The accuracy and precision of this test for all other off-label specimen sources has been verified in the Cytopathology Laboratory of the [facility] and has not been cleared or approved by the U.S. Food and Drug Administration. Clinical correlation is advised. The assay assesses the E6/E7 DNA target and utilizes human beta globin as an internal control. Cytology and HPV testing are screening assays and should not be used as the sole means of detecting cancer. False-positives and false-negatives can occur. CLINICAL HISTORY Date of Last Menstrual Period: Not Provided Menstrual History: Unknown Estephanie-Menopausal Contraceptive History: IUD Infection History: HPV: OTHER HIGH RISK, 2021, 2023 Other Clinical Conditions: Diagnostic Pap SPECIMEN SOURCE A: PAP SMEAR (THIN PREP) CE Patient Name: ROSELYN FERNANDO : 1970 (Age: 53) Sex: F Institution: [facility] Location: [facility] Date of Collection: 07/14/2024 Date of Reported: 07/21/2024 14:45 Results to: Barbara Jolly MD Barbara Jolly MD CYTOLOGY ORDERABLES Final Result SEE NARRATIVE from Last [address] [place] [address] [place] [address] Care Teams Color Paste Mixing Supervisor Relationship Specialty Start Date End Date Flora Villa MD [address] [place] [address] PCP - General Internal Medicine 05/20/18 Additional Source Comments The information contained in this document represents components of the legal health record. It is not the complete legal health record.[facility]
--- OUTSIDE RECORDS SUMMARY | 2024-10-01 07:28 | XMS_ITS ---
Author Name [facility] Organization Unknown History of Medication Use Medication Directions Dispensed Refills Start Date End Date Stat us clindamycin (CLEOCIN) 300 MG capsule Take 2 capsules (600 mg total) by mouth Pre-Medication. Take 1 dose 1 hour prior to dental procedure 07/31/2023 active ondansetron (ZOFRAN-ODT) 4 MG disintegrating tablet Take 1 tablet (4 mg total) by mouth 3 times daily (every 8 hours) as needed for nausea or vomiting. Place tablet on tongue to dissolve. 06/15/2023 active aspirin enteric coated (ECOTRIN LOW STRENGTH) 81 MG EC tablet Take 1 tablet (81 mg total) by mouth 2 times a day. 06/10/2023 07/09/2023 active senna-docusate (SENNA-S) 8.6-50 MG Take 1 tablet by mouth daily. 06/10/2023 06/25/2023 active Allergies Allergen Reaction Severity Comment Documented Date Source Statu s PENICILLINS HIVES 03/13/2023 CCT [facility] Problems Problem Status Onset Date Problem Type Date of Resoluti on Source Status post total knee replacement, unspecified laterality active EncounterDiagnosisAct CCT Encounters Encounter Type Encounter Reason Primary Diagnosis Location Date Ambulatory [facility] 06/08/2024 Ambulatory Presence of unspecified artificial knee joint Presence of unspecified artificial knee joint [facility] 06/08/2024 Ambulatory [facility] 09/25/2023 Ambulatory Presence of left artificial knee joint Presence of left artificial knee joint [facility] 09/25/2023 Ambulatory Presence of left artificial knee joint Presence of left artificial knee joint [facility] 07/31/2023 Ambulatory [facility] 06/28/2023 Ambulatory Presence of left artificial knee joint Presence of left artificial knee joint [facility] 06/28/2023 Ambulatory [facility] Unilateral prima ry osteoarthritis, left knee [facility] 06/13/2023 Ambulatory Unilateral primary osteoarthritis, left knee Unilateral primary osteoarthritis, left knee [facility] 06/03/2023 Ambulatory [facility] 03/13/2023 Ambulatory Unilateral primary osteoarthritis, left knee Unilateral primary osteoarthritis, left knee [facility] 03/13/2023 Care Team Organization Name Specialty Phone Email Start Date End Da te [facility] Flora Villa [facility] 06/10/2024 07/10/19 [facility] 03/14/2023 [facility] Flora Villa [facility] 03/14/2023 [facility] 03/13/2023 07/09/2024 [facility] NO PCP Primary Care 03/13/2023 [facility] 03/12/2023
== END 2024-10-01 07:27 | disposition home or self-care (01) ==
LOC: HO.MAMMO 07:26
PROVIDERS: PCP Internal Medicine; Visit Provider Internal Medicine
DX: Z12.31 Encounter for screening mammogram for malignant neoplasm of breast (principal)
CPT/HCPCS: 77063; 77067

== ENCOUNTER → 2024-10-01 07:45 | Outpatient (BNV) | payer BC, SELFPAY | PROVIDERS: PCP Internal Medicine; Visit Provider Radiology Body Imaging | DX: Z12.31 Encounter for screening mammogram for malignant neoplasm of breast (principal) | CPT/HCPCS: 77063; 77067 ==

== ENCOUNTER 2024-11-24 12:37 | Outpatient (AMB) | payer OTHER, SELFPAY ==
[2024-11-24 12:44] VITALS: BP 110/78; PULSE 91; RESP 18; TEMP 36.8; O2SAT 95; BMI 32.3
--- NOTE | 2024-11-24 12:44 | A.OFFPC_ITS ---
Vital Signs 11/24/24 12:44 Height 5 ft 7 in Weight 206 lb BMI 32.3 BP 110/78 Blood Pressure Location Lt brachial Position Sitting Respiration 18 Pulse 91 Pulse Source Pulse Oximeter Temp 98.3 F Temp Source Oral Pulse Oximetry (%) 95 Oxygen Delivery Method Room Air Intake Visit Reasons: Followup weight, insurance change Intake Note: Pt is here today for a follow up visit on weight loss medication. Allergies ketorolac (From TORADOL) Allergy (Intermediate, Verified 11/24/24 12:45) lowers BP latex Allergy (Unknown, Verified 11/24/24 12:45) Rash penicillin V Allergy (Unknown, Verified 11/24/24 12:45) rash Penicillins (PENICILLINS) Allergy (Unknown, Verified 11/24/24 12:45) HIVES bandage Allergy (Unknown, Uncoded 11/24/24 12:45) rash Medication List - Last Reconciled 11/24/24 by Flora Villa MD acetaminophen (Tylenol Extra Strength) 500 mg PO Q6H PRN citalopram 20 mg PO DAILY conjugated estrogens (Premarin) 6.25 mg PO DAILY diclofenac potassium 25 mg PO BID hydroxyzine HCl 10 mg PO BEDTIME lisinopril-hydrochlorothiazide 10-12.5 mg 2 tabs PO DAILY meloxicam 15 mg PO DAILY 30 days multivitamin (Daily Multi-Vitamin tablet) 1 tab PO DAILY omeprazole 10 mg PO DAILY ondansetron HCl 4 mg PO BEDTIME PRN 4 days Zepbound (tirzepatide (weight loss)) 10 mg (0.5 mL) subcut QWEEK NS Tobacco use date assessed: 11/24/24 Dental Screening Dental Screen Date: 05/01/23 HPI Followup weight, insurance change HPI Details Patient presents for the follow-up or obesity. She has been taking Zepbound 10 mg weekly and tolerating medication well. Patient lost 50 lb on Zepbound since May 2023. She has been exercising regularly decreasing caloric intake. Hypertension and chronic anxiety are controlled on current medications [facility]LY [facility] Medical History Bursitis Perimenopausal Overweight Annual physical exam Anxiety HTN (hypertension) Pelvic pain Surgical History H/O colonoscopy History of oophorectomy, unilateral Hx of carpal tunnel syndrome History of appendectomy Hx of cholecystectomy Family History Mother HTN (hypertension) Son No problems noted. Brother Substance use disorder Social History Housing: House Alcohol intake: never Patient Tobacco Use Status: Former Tobacco user e-Cigarette/Vaping Use: Never Used service: No Current occupational status: employed Cognitive needs: No Hearing needs: No Vision needs: Yes Questionnaire PHQ-9 Over the last 2 weeks, how often have you been bothered by any of the following problems? 1. Little interest or pleasure in doing things: not at all 2. Feeling down, depressed, or hopeless: not at all 3. Trouble falling or staying asleep, or sleeping too much: several days 4. Feeling tired or having little energy: not at all 5. Poor appetite or overeating: not at all 6. Feeling bad about yourself - or that you are a failure or have let yourself or your family down: not at all 7. Trouble concentrating on things, such as reading the newspaper or watching television: not at all 8. Moving or speaking so slowly that other people could have noticed. Or the opposite - being so fidgety or restless that you have been moving around a lot more than usual: not at all 9. Thoughts that you would be better off or of hurting yourself in some way: not at all Total score: 1 Depression Screening Interpretation: Negative Depression Screening Done: Yes Source: Developed by Drs. Jackson Caraballo, Mercedes Rg, Joaquin Alvarado and colleagues, with an educational eleuterio from [employer]. Thrive Questionnaire Date Thrive assessed: 11/21/24 I am a: Patient What is your living situation today?: I have a steady place to live Within the past 12 months, did the food you bought not last and you didn't have the money to get more?: Never true Within the past 12 months, did you worry whether your food would run out before you got money to buy more?: Never true Do you have trouble paying for medicines?: No Do you have trouble getting transportation to medical appointments?: No Do you have trouble paying your heating and electricity bill?: No Do you have trouble taking care of your child, family member or friend?: No Do you have trouble with day-to-day activities such as bathing, preparing meals, shopping, managing finances, etc.?: No Are you currently unemployed and looking for a job?: Yes Are you interested in more education?: No Please select the resources that you would like help with: None Currently or been in a relationship where the following occur: No concerns reported THRIVE Score: 0 AUDIT C Alcohol Use Questionnaire (AUDIT-C) 1. How often do you have a drink containing alcohol?: Never Total Score: 0 ALINE-7 AMB Questionnaire ALINE-7 Date ALINE - 7 assessed: 05/01/23 Feeling nervous, anxious, or on edge: 1 = Several days Not being able to stop or control worryin = Several days Worrying too much about different things: 1 = Several days Trouble relaxin = Several days Being so restless that it is hard to sit still: 1 = Several days Becoming easily annoyed or irritable: 1 = Several days Feeling afraid as if something awful might happen: 0 = Not at all Total ALINE-7 score (0-4 normal; 5-9 mild; 10-14 moderate; 15-21 severe): 6 Source: Developed by Drs. Jackson Caraballo, Mercedes Rg, Joaquin Alvarado and colleagues, with an educational eleuterio from [employer]. Review of Systems Const All systems reviewed & are unremarkable except as noted in HPI and below ENT Reports no additional complaints Card Reports no additional complaints Resp Reports no additional complaints GI Reports no additional complaints Physical exam (Primary Care) Vital Signs: Last Vital Signs Temp 98.3 F 11/24/24 12:44 Pulse 91 11/24/24 12:44 Resp 18 11/24/24 12:44 BP 110/78 11/24/24 12:44 Pulse Ox 95 11/24/24 12:44 Oxygen Delivery Method Room Air 11/24/24 12:44 BMI result Body Mass Index 32.3 Tobacco/Smoking Status: Tobacco use Status Tobacco use date assessed 11/24/24 11/24/24 12:48 Patient Tobacco Use Status Former Tobacco user 11/24/24 12:48 e-Cigarette/Vaping Use Never Used 11/24/24 12:48 PHQ-9: PHQ-9 Score PHQ-9: Total score 1 11/24/24 13:20 Depression Screening Interpretation: Negative Thrive Assessment: Date of Thrive Assessment Date Thrive assessed 11/21/24 11/24/24 12:48 Currently or been in a relationship where the following occur: No concerns reported Const General: no acute distress HENMT Head: Yes normal to inspection Face and sinus: Yes normal facial exam Eyes General: appearance normal, both eyes and all related structures Resp Effort & Inspection: normal respiratory effort Auscultation: clear to auscultation bilaterally Cardio Rhythm: regular rhythm Heart sounds: S1 normal heart sound present and S2 normal heart sound present Coding Level of Care Code Est Pt Level 4 (72715) Diagnoses HTN (hypertension) I10 Hyperlipidemia E78.5 Obesity (BMI 30-39.9) E66.9 Assessment & Plan Assessment & Plan (1) HTN (hypertension): Code(s): I10 - Essential (primary) hypertension Category: Medical Plan: Continue current medications (2) Hyperlipidemia: Code(s): E78.5 - Hyperlipidemia, unspecified Category: Medical Plan: Continue low-cholesterol diet (3) Obesity (BMI 30-39.9): Comment: Lost 50 lb on Zepbound since 05/2023 Code(s): E66.9 - Obesity, unspecified Category: Medical Plan: Patient needs to continue Zepbound 10 mg weekly to facilitate weight loss and and continue decreasing caloric intake regular physical activity Orders: Orders Comprehensive [place]. Panel Fast Today E66.9 - Obesity, unspecified, E78.5 - Hyperlipidemia, unspecified, I10 - Essential (primary) hypertension, Z00.00 - Encounter for general adult medical examination without abnormal findings Lipid Panel Today E66.9 - Obesity, unspecified, E78.5 - Hyperlipidemia, unspecified, I10 - Essential (primary) hypertension, Z00.00 - Encounter for general adult medical examination without abnormal findings TSH reflex Free T4 Today E66.9 - Obesity, unspecified, E78.5 - Hyperlipidemia, unspecified, I10 - Essential (primary) hypertension, Z00.00 - Encounter for general adult medical examination without abnormal findings Vitamin D 25-OH Total Today E66.9 - Obesity, unspecified, E78.5 - Hyperlipidemia, unspecified, I10 - Essential (primary) hypertension, Z00.00 - Encounter for general adult medical examination without abnormal findings UA w Microscopic Today E66.9 - Obesity, unspecified, E78.5 - Hyperlipidemia, unspecified, I10 - Essential (primary) hypertension, Z00.00 - Encounter for general adult medical examination without abnormal findings Complete Blood Count Auto Diff Today E66.9 - Obesity, unspecified, E78.5 - Hyperlipidemia, unspecified, I10 - Essential (primary) hypertension, Z00.00 - Encounter for general adult medical examination without abnormal findings Referrals Cologuard Test Z12.11 - Encounter for screening for malignant neoplasm of colon, Z12.12 - Encounter for screening for malignant neoplasm of rectum Medications: Refilled Zepbound (tirzepatide (weight loss)) 10 mg (0.5 mL) subcut QWEEK 6 mL 4RF NS
--- OUTSIDE RECORDS SUMMARY | 2024-11-24 15:30 | XMS_ITS | Encounter Summary ---
Author Organization [facility] Address [address] [place] [address] Care Team Providers Care Professor Of Law Name Role Phone Flora iVlla MD Primary Care Provider Encounter Details Date Type Department Care Team (Late st Contact Info) Description 04/10/2023 Scanned Document [facility] [address] [place] [address] Sp Mantilla MD [address] [facility] [address] [place] [id number] Social History Tobacco Use Types Packs/Day Years [...] on filedocumented in this encounter Care Teams Professor Of Law Relationship Specialty Start Date End Date Flora Villa MD [address] [facility] [place] [address] PCP - General 03/14/23 documented as of this encounter
--- OUTSIDE RECORDS SUMMARY | 2024-11-24 15:30 | XMS_ITS | Clinical Summary ---
Author Organization [facility] Address [address] [place] [address] Care Team Providers Care Mechanical Assembly Name Role Phone Flora Villa MD Primary Care Provider [phone] Allergies Active Allergy Reactions Criticality Noted Date Comments Latex Hives Medium 03/13/2023 Penicillins Hives Medium 03/13/2023 Medications diclofenac enteric coated (VOLTAREN) 75 MG EC tabletIndications: Primary osteoarthritis of left knee Take 1 tablet (75 mg total) by mouth 2 (two) times a day with meals. Administer with food avoid GI upset. 180 tablet 4 Active acetaminophen (TYLENOL) 500 MG tabletIndications: Primary osteoarthritis of left knee Take 2 tablets (1,000 mg total) by mouth 3 times daily (every 8 hours). 120 tablet 4 Active aspirin enteric coated (ECOTRIN LOW STRENGTH) 81 MG EC tabletIndications: Primary osteoarthritis of left knee Take 1 tablet (81 mg total) by mouth 2 times a day. 56 tablet 4 Active senna-docusate (SENNA-S) 8.6-50 MGIndications:Prim grace osteoarthritis of left knee Take 1 tablet by mouth daily. 14 tablet 4 Active ondansetron (ZOFRAN-ODT) 4 MG disintegrating tabletIndications: Primary osteoarthritis of left knee Take 1 tablet (4 mg total) by mouth 3 times daily (every 8 hours) as needed for nausea or vomiting. Place tablet on tongue to dissolve. 20 tablet 1 4 Active clindamycin (CLEOCIN) 300 MG capsuleIndications :Status post left knee replacement Take 2 capsules (600 mg total) by mouth Pre-Medication . Take 1 dose 1 hour prior to dental procedure 8 capsule 5 026 Active Social History Tobacco Use Types Packs/Day Years Used Date Smoking Tobacco: Never Assessed Comments Unknown Sex and Gender Information Value Date Recorded Sex Assigned at Female 03/18/2023 3:17 PM EST Legal Sex Female 10:18 AM EDT Gender Identity Female 03/18/2023 3:17 PM EST Sexual Orientation Asexual 03/18/2023 3: 17 PM EST Plan of Treatment Health Maintenance Due Date Last Done Comments Hepatitis C Virus Screening 1972 HIV Screening 1985 DTaP/Tdap/Td Vaccines (1 - Tdap) 09/10/1991 Hepatitis B Vaccines (1 of 3 - 19+ 3-dose series) 08/19 Pap Smear (Ages 21-65) 1993 Mammogram 2012 Colonoscopy 2017 Pneumococcal Vaccines 50+ (1 of 1 - PCV) 2022 Zoster (Shingles) Vaccine (1 of 2) 2022 Influenza Vaccine 09/18/2024 COVID-19 Vaccine (1 - 2023- season) 2024 Insurance [facility] HMO Care Teams Mechanical Assembly Relationship Specialty Start Date End Date Flora Villa MD [address] [place] [address] PCP - General 03/14/23
--- OUTSIDE RECORDS SUMMARY | 2024-11-24 15:30 | XMS_ITS | Clinical Summary ---
Author Organization [facility] Address [address] [place] [phone] Phone Care Team Providers Care Top Hat Body Maker Name Role Phone Flora Villa MD Primary Care Provider [phone] Allergies Active Allergy Reactions Criticality Noted Date [...] times a day. Twice a day Active ZEPBOUND 7.5 mg/0.5 mL subcutaneous pen Inject 7.5 mg under the skin every 14 (fourteen) days. 5 Active meloxicam (MOBIC) 15 MG tablet Take 1 tablet by mouth every morning. 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 at [address] [place] [address] - recommend LEEP 08/2024 LEEP CIN1, neg [...] Type Department Care Team Description 09/28/2024 Refill [facility] [address] [place] [address] [place] [address] Barbara Jolly MD Medication Refill 09/17/2024 10:40 AM EDT Office Visit [facility] [address] [place] [address] [place] [address] Barbara Jolly MD Dysplasia of cervix, high grade NAZIA 2 (Primary Dx); IUD (intrauterine device) in place; Encounter for removal and reinsertion of intrauterine contraceptive device from Last 3 Months Immunizations Immunization Administration [...] 2022 ZOSTER VACCINES (1 of 2) 2022 INFLUENZA VACCINE (#1) 2024 COVID-19 VACCINE (1 - 2023- season) 2024 PAP SMEAR 07/14/2025 07/14/2024, 03/0 07/2023, 06/20/2021, [...] this topic Medical Devices Implanted Type Area Bow Machine Operator Device Identifier Shelf Expiration Date Model / Serial / Lot Iud Implanted: (Quantity not on file) Intrauterine Device Procedures Procedure Name Priority Date/Time Associated Diagnosis Comments ANATOMIC PATHOLOGY Routine 09/17/2024 12 :00 AM EDT PAP TEST Routine 07/14/2024 12:00 AM EDT from Last 3 Months or Most Recently Relevant to Health Maintenance Results * Anatomic Pathology (09/17/2024 12:00 AM EDT) 09/17/2024 09/17/2024 3:0 4 PM EDT Narrative SEE NARRATIVE - 09/18/2024 12:35 PM EDT [address] [address] Punch Out Crew Member: Binu Appiah MD Surgical Pathology Report FINAL PATHOLOGIC DIAGNOSIS: A. CERVIX, LEEP CONE BIOPSY: Low-grade squamous intraepithelial lesion, CIN1, focally involving the endocervical margin. B. ENDOCERVICAL CURETTINGS: Scant benign endocervical tissue. Electronically Signed Out By Bniu Appiah MD By his/her signature above, the [...] : 1970 (Age: 54) Sex: F Institution: [facility] Location: [facility] Date of Operation: 09/17/2024 Date of Reported: 09/18/2024 12:35 Results To: Barbara Villa MD us Barbara Jolly MD PATHOLOGY ORDERABLES Final Result SEE NARRATIVE * (ABNORMAL) Pap Test (07/14/2024 12:00 AM EDT) 07/14/2024 07/15/2024 9:3 5 AM EDT Narrative SEE NARRATIVE - 07/21/2024 2:45 [place] [address] Punch Out Crew Member: Binu Appiah MD WAITER/WAITRESS THIRD CLASS Cytology Report FINAL DIAGNOSIS A. PAP SMEAR (THIN PREP) CE: SPECIMEN ADEQUACY: Satisfactory for evaluation; transformation zone present. INTERPRETATION: EPITHELIAL CELL ABNORMALITY - SQUAMOUS. Atypical squamous cells, cannot exclude high grade squamous intraepithelial lesion. This specimen was analyzed by the automated ThinPrep Imaging System ([employer]th[employer].) and manually rescreened by a event marketing coordinator and/or pathologist. Electronically Signed Out By: MD Amanda Florian CT(ASCP) By his/her signature above, the pathologist listed [...] by real-time polymerase chain reaction (PCR) at [facility], [address] [place] [address] using the FDA-approved BD Onclarity HPV Assay with extended genotyping. Uses of the assay in scenarios other than those approved by the FDA should be considered off-label use. The accuracy and precision of this test for all other off-label specimen sources has been verified in the Cytopathology Laboratory of the [facility] and has not been cleared or [...] IUD Infection History: HPV: OTHER HIGH RISK, 2023 Other Clinical Conditions: Diagnostic Pap SPECIMEN SOURCE A: PAP SMEAR (THIN PREP) CE Patient Name: ROSELYN FERNANDO : 1970 (Age: 53) Sex: F Institution: [facility] Location: [facility] Date of Collection: 07/14/2024 Date of Reported: 07/21/2024 14:45 Results to: Barbara Jolly MD us Barbara Jolly MD CYTOLOGY ORDERABLES Final Result SEE NARRATIVE from Last 3 Months or Most Recently Relevant to Health Maintenance [place] [address] [place] [address] [place] [address] [place] [address] [place] [address] [place] [address] Care Teams Top Hat Body Maker Relationship Specialty Start Date End Date Flora Villa MD [address] [facility] [place] [address] PCP - General Internal Medicine 05/20/18 Additional Source Comments The information contained in this document represents components of the legal health record. It is not the complete legal health record.[facility]
--- OUTSIDE RECORDS SUMMARY | 2024-11-24 15:30 | XMS_ITS | Encounter Summary ---
Author Organization [facility] Address [address] [place] [address] Care Team Providers Care Dry Cleaning Teacher Name Role Phone Flora Villa MD Primary Care Provider [phone] Encounter Details Date Type Department Care Team (Late st Contact Info) Description 04/25/2023 Scanned Document [facility] [address] [place] [id number] Sp Mantilla MD [address] [place] [address] [address] [place] [address] Social History Tobacco Use Types Packs/Day Years [...] on filedocumented in this encounter Care Teams Dry Cleaning Teacher Relationship Specialty Start Date End Date Flora Villa MD [address] [place] [address] PCP - General 03/14/23 documented as of this encounter
--- OUTSIDE RECORDS SUMMARY | 2024-11-24 15:30 | XMS_ITS | Encounter Summary ---
Author Organization [facility] Address [address] [place] [address] Care Team Providers Care Pharmacy Picking Tech Name Role Phone Flora Villa MD Primary Care Provider [phone] Encounter Details Date Type Department Care Team (Late st Contact Info) Description 06/13/2023 Scanned Document [facility] [address] [place] [address] Sp Mantilla MD [address] [place] [address] [address] [place] [address] Social History Tobacco Use Types Packs/Day Years [...] on filedocumented in this encounter Care Teams Pharmacy Picking Tech Relationship Specialty Start Date End Date Flora Villa MD [address] [facility] [place] [address] PCP - General 03/14/23 documented as of this encounter
--- OUTSIDE RECORDS SUMMARY | 2024-11-24 15:30 | XMS_ITS | Encounter Summary ---
Author Organization [facility] Address [address] [place] [address] Care Team Providers Care Line Patrolman Name Role Phone Flora Villa MD Primary Care Provider [phone] Encounter Details Date Type Department Care Team (Late st Contact Info) Description 04/10/2023 Scanned Document [facility] [address] [place] [address] Sp Mantilla MD [address] [facility] [address] [place] [phone] Social History Tobacco Use Types Packs/Day Years [...] on filedocumented in this encounter Care Teams Line Patrolman Relationship Specialty Start Date End Date Flora Villa MD [address] [facility] [place] [address] PCP - General 03/14/23 documented as of this encounter
--- OUTSIDE RECORDS SUMMARY | 2024-11-24 15:30 | XMS_ITS | Encounter Summary ---
Author Organization [facility] Address [address] [place] [address] Care Team Providers Care Videotape Operator Name Role Phone Flora Villa MD Primary Care Provider [phone] Encounter Details Date Type Department Care Team (Late st Contact Info) Description 03/21/2023 Scanned Document [facility] [address] [place] [phone] Sp Mantilla MD [address] [place] [address] [address] [place] [address] Social History Tobacco Use Types Packs/Day Years [...] on filedocumented in this encounter Care Teams Videotape Operator Relationship Specialty Start Date End Date Flora Villa MD [address] [facility] [place] [address] PCP - General 03/14/23 documented as of this encounter
--- OUTSIDE RECORDS SUMMARY | 2024-11-24 15:30 | XMS_ITS | Encounter Summary ---
Author Organization [facility] Address [address] [place] [address] Care Team Providers Care Prototype Special Build Name Role Phone Flora Villa MD Primary Care Provider Encounter Details Date Type Department Care Team (Late st Contact Info) Description 04/10/2023 Scanned Document [facility] [address] [place] [address] Sp Mantilla MD [address] [facility] [address] [place] [phone] Social History Tobacco Use Types Packs/Day Years [...] on filedocumented in this encounter Care Teams Prototype Special Build Relationship Specialty Start Date End Date Flora Villa MD [address] [facility] [place] [address] PCP - General 03/14/23 documented as of this encounter
--- OUTSIDE RECORDS SUMMARY | 2024-11-24 15:30 | XMS_ITS | Encounter Summary ---
Author Organization [facility] Address [address] [place] [address] Care Team Providers Care Auto Clocks Repairer Name Role Phone Flora Villa MD Primary Care Provider [phone] Encounter Details Date Type Department Care Team (Late st Contact Info) Description 06/04/2023 Scanned Document [facility] [address] [place] [address] Sp Mantilla MD [address] [place] [address] [address] [place] [address] Social History Tobacco Use Types Packs/Day Years [...] on filedocumented in this encounter Care Teams Auto Clocks Repairer Relationship Specialty Start Date End Date Flora Villa MD [address] [facility] [place] [address] PCP - General 03/14/23 documented as of this encounter
--- OUTSIDE RECORDS SUMMARY | 2024-11-24 15:30 | XMS_ITS | Encounter Summary ---
Author Organization [facility] Address [address] [place] [address] Care Team Providers Care Oral And Maxillofacial Surgeon Name Role Phone Flora Villa MD Primary Care Provider [phone] Encounter Details Date Type Department Care Team (Late st Contact Info) Description 04/21/2024 Scanned Document [facility] [address] [place] [phone] Sp Mantilla MD [address] [place] [address] [address] [place] [address] Social History Tobacco Use Types Packs/Day Years [...] on filedocumented in this encounter Care Teams Oral And Maxillofacial Surgeon Relationship Specialty Start Date End Date Flora Villa MD [address] [facility] [place] [address] PCP - General 03/14/23 documented as of this encounter
== END 2024-11-24 16:08 | disposition home or self-care (01) ==
PROVIDERS: PCP Internal Medicine; Visit Provider Internal Medicine
DX: I10 Essential (primary) hypertension (principal); E78.5 Hyperlipidemia, unspecified; E66.9 Obesity, unspecified; Z68.32 Body mass index [BMI] 32.0-32.9, adult

== ENCOUNTER → 2024-11-24 12:37 | Outpatient (BNVA) | payer OTHER, SELFPAY | PROVIDERS: PCP Internal Medicine; Visit Provider Internal Medicine | DX: I10 Essential (primary) hypertension (principal); E66.9 Obesity, unspecified; F41.9 Anxiety disorder, unspecified; E78.5 Hyperlipidemia, unspecified; Z68.32 Body mass index [BMI] 32.0-32.9, adult; Z79.899 Other long term (current) drug therapy | CPT/HCPCS: 99212 ==

== ENCOUNTER 2025-01-19 08:29 | Outpatient (REF) | payer OTHER, SELFPAY ==
--- OUTSIDE RECORDS SUMMARY | 2025-01-19 08:34 | XMS_ITS | Encounter Summary ---
Author Organization [facility] Address [address] [place] [address] Care Team Providers Care Auctioneer Tobacco Name Role Phone Flora Villa MD Primary Care Provider [phone] Encounter Details Date Type Department Care Team (Late st Contact Info) Description 06/13/2023 Scanned Document [facility] [address] [place] [address] Sp Mantilla MD [address] [place] [address] [address] [place] [address] Social History Tobacco Use Types Packs/Day Years [...] on filedocumented in this encounter Care Teams Auctioneer Tobacco Relationship Specialty Start Date End Date Flora Villa MD [address] [facility] [place] [address] PCP - General 03/14/23 documented as of this encounter
--- OUTSIDE RECORDS SUMMARY | 2025-01-19 08:34 | XMS_ITS | Encounter Summary ---
Author Organization [facility] Address [address] [place] [address] Care Team Providers Care Molding Plasterer Name Role Phone Flora Villa MD Primary Care Provider [phone] Encounter Details Date Type Department Care Team (Late st Contact Info) Description 04/25/2023 Scanned Document [facility] [address] [place] [phone] Sp Mantilla MD [address] [place] [address] [address] [place] [address] Social History Tobacco Use Types Packs/Day Years [...] on filedocumented in this encounter Care Teams Molding Plasterer Relationship Specialty Start Date End Date Flora Villa MD [address] [facility] [place] [address] PCP - General 03/14/23 documented as of this encounter
--- OUTSIDE RECORDS SUMMARY | 2025-01-19 08:34 | XMS_ITS | Encounter Summary ---
Author Organization [facility] Address [address] [place] [address] Care Team Providers Care Clinic Lead Name Role Phone Flora Villa MD Primary Care Provider [phone] Encounter Details Date Type Department Care Team (Late st Contact Info) Description 04/10/2023 Scanned Document [facility] [address] [place] [address] Sp Mantilla MD [address] [facility] [address] [place] [phone] Social History Tobacco Use Types Packs/Day Years [...] on filedocumented in this encounter Care Teams Clinic Lead Relationship Specialty Start Date End Date Flora Villa MD [address] [facility] [place] [address] PCP - General 03/14/23 documented as of this encounter
--- OUTSIDE RECORDS SUMMARY | 2025-01-19 08:34 | XMS_ITS | Clinical Summary ---
Author Organization [facility] Address [address] [place] [address] Care Team Providers Care Swim Instructor Name Role Phone Flora Villa MD Primary Care Provider [phone] Allergies Active Allergy Reactions Criticality Noted Date [...] 50+ (1 of 1 - PCV) 2022 RSV Vaccine 50 years and old er and Patients (1 - Risk 50-74 years 1-dose series) 2022 Zoster (Shingles) Vaccine (1 of 2) 2022 Influenza Vaccine 09/18/2024 COVID-19 Vaccine (1 - 2023- season) [address] [place] [address] [facility] [place] [facility] [place] Teams Swim Instructor Relationship Specialty Start Date End Date Flora Villa MD [address] [facility] [place] [id number] PCP - General 03/14/23
--- OUTSIDE RECORDS SUMMARY | 2025-01-19 08:34 | XMS_ITS | Clinical Summary ---
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 at [address] [place] [address] - recommend LEEP 08/2024 LEEP CIN1, neg [...] annual routine gynec ological examination 10/01/2019 06/20/2021 Immunizations Immunization Administration Dates Next Due Tdap [...] VACCINE (#1) 2024 COVID-19 VACCINE (1 - 2024- season) 2024 PAP SMEAR 07/14/2025 07/14/2024, 03/0 07/2023, 06/20/2021, Additional history exists Adult Td,Tdap Booster 07/28/2028 07/28/2018, 013 IUD 09/17/2032 09/17/2024 RSV VACCINE (1 - 1-dose 75+ series) 09/10/2047 HEPATITIS A VACCINES Aged Out No long [...] this topic Medical Devices Implanted Type Area Cafeteria Table Attendant Device Identifier Shelf Expiration Date Model / Serial / Lot Iud Implanted: (Quantity not on file) Intrauterine Device Procedures Procedure Name Priority Date/Time Associated Diagnosis Comments PAP TEST Routine 07/14/2024 12:00 AM EDT from Last 3 Months or Most Recently Relevant to Health Maintenance Results * Pap Test (07/14/2024 12:00 AM EDT) Report [address] [address] Bark Scaler: Binu Appiah MD SPEECH AND LANGUAGE ASSISTANT Cytology Report FINAL DIAGNOSIS A. PAP SMEAR (THIN PREP) CE: SPECIMEN ADEQUACY: Satisfactory for evaluation; transformation zone present. INTERPRETATION: EPITHELIAL CELL ABNORMALITY - SQUAMOUS. Atypical squamous cells, cannot exclude high grade squamous intraepithelial lesion. This specimen was analyzed by the automated ThinPrep Imaging System ([employer] and manually rescreened by a paint stockman and/or pathologist. Electronically Signed Out By: MD [...] by real-time polymerase chain reaction (PCR) at [facility], [address] [place] [address] using the FDA-approved BD Onclarity HPV Assay with extended genotyping. Uses of the assay in scenarios other than those approved by the FDA should be considered off-label use. The accuracy and precision of this test for all other off-label specimen sources has been verified in the Cytopathology Laboratory of the [facility] and has not been cleared or approved [...] PAP SMEAR (THIN PREP) CE Patient Name: [place] FERNANDO : 1970 (Age: 53) Sex: F Institution: [facility] Location: [facility] Date of Collection: 07/14/2024 Date of Reported: 07/21/2024 14:45 Results to: Barbara Jolly MD [facility] Final Diagnosis A. PAP SMEAR (THIN PREP) CE: SPECIMEN ADEQUACY: Satisfactory for evaluation; transformation zone present. INTERPRETATION: EPITHELIAL CELL ABNORMALITY - SQUAMOUS. Atypical squamous cells, cannot exclude high grade squamous intraepithelial lesion. This specimen was analyzed by the automated ThinPrep Imaging System ([employer] and manually rescreened by a paint stockman and/or pathologist. [facility] Results\Inte rpretation A. PAP SMEAR (THIN PREP) CE: High-risk HPV Panel w/ extended genotyping POS HPV 16-NEG HPV 18-NEG HPV 45-NEG HPV 33/58-NEG HPV 31-POS HPV 56/59/66-NEG HPV 51-NEG HPV 52-NEG HPV 35/39/68-NEG Performed by real-time polymerase chain reaction (PCR) at [facility], [address] [place] [address] using the FDA-approved BD Onclarity HPV Assay with extended genotyping. Uses of the assay in scenarios other than those approved by the FDA should be considered off-label use. The accuracy and precision of this test for all other off-label specimen sources has been verified in the Cytopathology Laboratory of the [facility] and has not been cleared or approved by the U.S. Food and Drug Administration. Clinical correlation is advised. The assay assesses the E6/E7 DNA target and utilizes human beta globin as an internal control. Cytology and HPV testing are screening assays and should not be used as the sole means of detecting cancer. False-positives and false-negatives can occur. [facility] Conversion Type (Conversion Source) 07/14/2024 07/15/2024 9:35 AM EDT Barbara Jolly MD CYTOLOGY ORDERABLES Edited Result - Final [facility] [address] [place] [address] from Last 3 Months or Most Recently Relevant to Health Maintenance [place] [address] [address] [place] [address] [place] [address] [place] [address] [place] [address] [place] [address] Care Teams Stock Preparation Supervisor Relationship Specialty Start Date End Date Flora Villa MD [facility] [place] [address] PCP - General Internal Medicine 05/20/18 Additional Source Comments The information contained in this document represents components of the legal health record. It is not the complete legal health record.[facility]
--- OUTSIDE RECORDS SUMMARY | 2025-01-19 08:34 | XMS_ITS | Encounter Summary ---
Author Organization [facility] Address [address] [place] [address] Care Team Providers Care Local Company Flatbed Truck Driver Name Role Phone Flora Villa MD Primary Care Provider [phone] Encounter Details Date Type Department Care Team (Late st Contact Info) Description 06/04/2023 Scanned Document [facility] [address] [place] [address] Sp Mantilla MD [address] [place] [address] [address] [place] [address] Social History Tobacco Use Types Packs/Day Years [...] on filedocumented in this encounter Care Teams Local Company Flatbed Truck Driver Relationship Specialty Start Date End Date Flora Villa MD [address] [place] [place] [address] PCP - General 03/14/23 documented as of this encounter
--- OUTSIDE RECORDS SUMMARY | 2025-01-19 08:34 | XMS_ITS | Encounter Summary ---
Author Organization [facility] Address [address] [place] [address] Care Team Providers Care Courtesy Driver Name Role Phone Flora Villa MD Primary Care Provider [phone] Encounter Details Date Type Department Care Team (Late st Contact Info) Description 03/21/2023 Scanned Document [facility] [address] [place] [address] Sp Mantilla MD [address] [place] [address] [address] [place] [address] Social History Tobacco Use Types Packs/Day Years [...] on filedocumented in this encounter Care Teams Courtesy Driver Relationship Specialty Start Date End Date Flora Villa MD [address] [facility] [place] [address] PCP - General 03/14/23 documented as of this encounter
--- OUTSIDE RECORDS SUMMARY | 2025-01-19 08:34 | XMS_ITS | Encounter Summary ---
Author Organization [facility] Address [address] [place] [address] Care Team Providers Care Snap Shearer Name Role Phone Flora Villa MD Primary Care Provider [phone] Encounter Details Date Type Department Care Team (Late st Contact Info) Description 04/10/2023 Scanned Document [facility] [address] [place] [address] Sp aMntilla MD 499 [facility] [address] [place] [phone] Social History Tobacco Use Types Packs/Day Years [...] on filedocumented in this encounter Care Teams Snap Shearer Relationship Specialty Start Date End Date Flora Villa MD 262 [facility] [place] [address] PCP - General 03/14/23 documented as of this encounter
--- OUTSIDE RECORDS SUMMARY | 2025-01-19 08:34 | XMS_ITS | Encounter Summary ---
Author Organization [facility] Address [address] [place] [address] Care Team Providers Care Golf Caddy Name Role Phone Flora Villa MD Primary Care Provider [phone] Encounter Details Date Type Department Care Team (Late st Contact Info) Description 04/21/2024 Scanned Document [facility] [address] [place] [address] Sp Mantilla MD [address] [place] [address] [address] [place] [address] Social History Tobacco Use Types Packs/Day Years [...] on filedocumented in this encounter Care Teams Golf Caddy Relationship Specialty Start Date End Date Flora Villa MD [address] [facility] [place] [address] PCP - General 03/14/23 documented as of this encounter
--- OUTSIDE RECORDS SUMMARY | 2025-01-19 08:34 | XMS_ITS | Encounter Summary ---
Author Organization [facility] Address [address] [place] [address] Care Team Providers Care Automatic Pilot Mechanic Name Role Phone Flora Villa MD Primary Care Provider [phone] Encounter Details Date Type Department Care Team (Late st Contact Info) Description 04/10/2023 Scanned Document [facility] [address] [place] [address] Sp Mantilla MD 499 [facility] [address] [place] [phone] Social History Tobacco Use Types Packs/Day Years [...] on filedocumented in this encounter Care Teams Automatic Pilot Mechanic Relationship Specialty Start Date End Date Flora Villa MD [address] [facility] [place] [address] PCP - General 03/14/23 documented as of this encounter
[2025-01-19 10:11] LABS: Appearance Urine Clear; Glucose Urine UA Negative (Negative); PH 7.0 (5.0-9.0); Specific Gravity - Urine 1.020 (1.005-1.025)
[2025-01-19 10:13] LABS: MANUAL DIFF FLAG NO
[2025-01-19 10:27] LABS: Hematocrit 39.9 % (37.0-47.0); Hemoglobin 13.5 g/dl (12.0-16.0); Imm Gran Abs Auto 0.01 X10*3/uL (0.00-0.03); Imm Gran Pct Auto 0.2 % (0.0-0.4); Lymphocytes Absolute Auto 2.5 X10*3/uL (1.2-4.9); Mean Corpuscular HGB Conc 33.8 g/dl (31.0-35.0); Mean Corpuscular Hemoglobin 30.2 pg (27.0-33.0); Mean Corpuscular Volume 89.3 fL (80.0-98.0); NRBC Abs Auto 0.000 X10*3/uL (0.0-0.012); NRBC Pct Auto 0.0 /100WBC (0.0-0.2); Platelet Count 457 X10*3/uL (160-400); Red Blood Count 4.47 X10*6/uL (4.20-5.50); White Blood Count 6.6 X10*3/uL (4.8-10.8)
[2025-01-19 11:16] LABS: Alanine Aminotransferase 19 U/L (0-31); Albumin Level 4.0 g/dL (3.5-5.0); Alkaline Phosphatase 94 U/L (39-117); Anion Gap 11 (12-20); Aspartate Amino Transferase 25 U/L (5-31); Blood Urea Nitrogen 16 mg/dL (9-16); Calcium 9.2 mg/dL (8.4-10.2); Carbon Dioxide 28 mmol/L (22-29); Chloride 103 mmol/L (96-108); Cholesterol 221 mg/dL (<200); Estimated Glomerular Filt Rate > 60; HDL Cholesterol 48 mg/dL (>40); Potassium 3.7 mmol/L (3.3-5.1); Sodium 138 mmol/L (135-145); Total Protein 7.1 g/dL (6.5-8.0); Triglycerides 169 mg/dL (<150)
== END 2025-01-19 08:30 | disposition home or self-care (01) ==
LOC: HO.HMGCLDS 08:29
PROVIDERS: PCP Internal Medicine; Visit Provider Internal Medicine
DX: Z00.00 Encounter for general adult medical examination without abnormal findings (principal); I10 Essential (primary) hypertension; E78.5 Hyperlipidemia, unspecified; E66.9 Obesity, unspecified
CPT/HCPCS: 36415; 80053; 80061; 81001; 82306; 84443; 85025

== ENCOUNTER 2025-02-03 07:30 | Outpatient (REF) | payer OTHER, SELFPAY ==
--- OUTSIDE RECORDS SUMMARY | 2025-02-03 07:35 | XMS_ITS | Encounter Summary ---
Author Organization [facility] Address [address] [place] [address] Care Team Providers Care Texturing Machine Fixer Name Role Phone Flora Villa MD Primary Care Provider [phone] Encounter Details Date Type Department Care Team (Late st Contact Info) Description 06/04/2023 Scanned Document [facility] [address] [place] [address] Sp Mantilla MD [address] [place] [address] [address] [place] [address] Social History Tobacco Use Types Packs/Day Years [...] on filedocumented in this encounter Care Teams Texturing Machine Fixer Relationship Specialty Start Date End Date Flora Villa MD [address] [facility] [place] [address] PCP - General 03/14/23 documented as of this encounter
--- OUTSIDE RECORDS SUMMARY | 2025-02-03 07:35 | XMS_ITS | Encounter Summary ---
Author Organization [facility] Address [address] [place] [address] Care Team Providers Care Copy Supervisor Name Role Phone Flora Villa MD Primary Care Provider [phone] Encounter Details Date Type Department Care Team (Late st Contact Info) Description 04/10/2023 Scanned Document [facility] [address] [place] [address] Sp Mantilla MD [address] [facility] [address] [place] [phone] Social History Tobacco Use Types Packs/Day Years [...] on filedocumented in this encounter Care Teams Copy Supervisor Relationship Specialty Start Date End Date Flora Villa MD [address] [facility] [place] [address] PCP - General 03/14/23 documented as of this encounter
--- OUTSIDE RECORDS SUMMARY | 2025-02-03 07:35 | XMS_ITS | Encounter Summary ---
Author Organization [facility] Address [address] [place] [address] Care Team Providers Care Nondestructive Tester Name Role Phone Flora Villa MD Primary Care Provider [phone] Encounter Details Date Type Department Care Team (Late st Contact Info) Description 04/25/2023 Scanned Document [facility] [address] [place] [address] Sp Mantilla MD [address] [place] [address] [address] [place] [address] Social History Tobacco Use Types Packs/Day Years [...] on filedocumented in this encounter Care Teams Nondestructive Tester Relationship Specialty Start Date End Date Flora Villa MD [address] [facility] [place] [address] PCP - General 03/14/23 documented as of this encounter
--- OUTSIDE RECORDS SUMMARY | 2025-02-03 07:35 | XMS_ITS | Clinical Summary ---
Author Organization [facility] Address [address] [place] [address] Phone Care Team Providers Care Floral Merchandiser Name Role Phone Flora Villa MD Primary Care Provider [phone] Allergies Active Allergy Reactions Criticality Noted Date [...] BY MOUTH AT BEDTIME NEEDED FOR ANXIETY 01/09/20 18 Active levonorgestrel (MIRENA) 20 mcg/24 hr (5 years) intrauterine device 1 each by Intrauterine route. Active ondansetron (ZOFRAN) 8 MG tablet Take 8 mg by mouth as needed. 04/04/19 18 Active lisinopril-hydro CHLOROthiazide (PRINZIDE,ZESTOR ETIC) 10-12.5 mg per tablet Take 2 tablets by mouth daily. 06/08/19 22 Active citalopram (CELEXA) 20 MG tablet Take 20 mg by mouth daily. 05/06/19 22 Active acetaminophen (TYLENOL) 500 MG tablet Take 500 mg by mouth 2 (two) times a day. Twice a day Active ZEPBOUND 7.5 mg/0.5 mL subcutaneous pen Inject 7.5 mg under the skin every 14 (fourteen) days. 06/30/19 Active meloxicam (MOBIC) 15 MG tablet Take 1 tablet by mouth every morning. 09/07/19 25 Active estrogens, conjugated, (PREMARIN) 0.625 MG tabletIndication s:Menopause syndrome Take 1 tablet (0.625 mg total) by mouth daily. 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 Menopause syndrome 01/16/2018 Overview (02/02/2025): On HRT; oral premarin Had reaction to adhesive patch in the past Assessment & Plan (06/20/2021 11:22 AM EDT): [...] VACCINE (#1) 2024 COVID-19 VACCINE (1 - season) 2024 PAP SMEAR 07/14/2025 07/14/2024, 03/0 07/2023, 06/20/2021, Additional history exists Adult Td,Tdap Booster 07/28/2028 07/28/2018, 05/02/ 013 IUD 09/17/2032 09/17/2024 RSV VACCINE (1 [...] this topic Medical Devices Implanted Type Area Electrical High Tension Tester Device Identifier Shelf Expiration Date Model / Serial / Lot Iud Implanted: (Quantity not on file) Intrauterine Device Procedures Procedure Name Priority Date/Time Associated Diagnosis Comments PAP TEST Routine 07/14/2024 12:00 AM EDT from Last 3 Months or Most Recently Relevant to Health Maintenance Results * Pap Test (07/14/2024 12:00 AM EDT) [place] [address] Vp Human Resources: Binu Appiah MD ENGRAVER LETTER Cytology Report FINAL DIAGNOSIS A. PAP SMEAR (THIN PREP) CE: SPECIMEN ADEQUACY: Satisfactory for evaluation; transformation zone present. INTERPRETATION: EPITHELIAL CELL ABNORMALITY - SQUAMOUS. Atypical squamous cells, cannot exclude high grade squamous intraepithelial lesion. This specimen was analyzed by the automated ThinPrep Imaging System ([employer] and manually rescreened by a plaster mixer and/or pathologist. Electronically Signed Out By: MD [...] by real-time polymerase chain reaction (PCR) at [facility], [address] [place] [address] using the FDA-approved BD Onclarity HPV Assay with extended genotyping. Uses of the assay in scenarios other than those approved by the FDA should be considered off-label use. The accuracy and precision of this test for all other off-label specimen sources has been verified in the Cytopathology Laboratory of the [facility] and has not been cleared or approved [...] : 1970 (Age: 53) Sex: F Institution: [facility] Location: [facility] Date of Collection: 07/14/2024 Date of Reported: 07/21/2024 14:45 Results to: Barbara Jolly MD [facility] Final Diagnosis A. PAP SMEAR (THIN PREP) CE: SPECIMEN ADEQUACY: Satisfactory for evaluation; transformation zone present. INTERPRETATION: EPITHELIAL CELL ABNORMALITY - SQUAMOUS. Atypical squamous cells, cannot exclude high grade squamous intraepithelial lesion. This specimen was analyzed by the automated ThinPrep Imaging System ([employer] and manually rescreened by a plaster mixer and/or pathologist. [facility] Results\Inte rpretation A. PAP SMEAR (THIN PREP) CE: High-risk HPV Panel w/ extended genotyping POS HPV 16-NEG HPV 18-NEG HPV 45-NEG HPV 33/58-NEG HPV 31-POS HPV 56/59/66-NEG HPV 51-NEG HPV 52-NEG HPV 35/39/68-NEG Performed by real-time polymerase chain reaction (PCR) at [facility], [address] [place] [address] using the FDA-approved [employer] Onclarity HPV Assay with extended genotyping. Uses of the assay in scenarios other than those approved by the FDA should be considered off-label use. The accuracy and precision of this test for all other off-label specimen sources has been verified in the Cytopathology Laboratory of the [facility] and has not been cleared or approved by the U.S. Food and Drug Administration. Clinical correlation is advised. The assay assesses the E6/E7 DNA target and utilizes human beta globin as an internal control. Cytology and HPV testing are screening assays and should not be used as the sole means of detecting cancer. False-positives and false-negatives can occur. [facility] Conversion Type (Conversion Source) 07/14/2024 07/15/2024 9:35 AM EDT Barbara Jolly MD CYTOLOGY ORDERABLES Edited Result - Final [address] [address] from Last 3 Months or Most Recently Relevant to Health Maintenance [place] [address] [address] [place] [address] [place] [address] [place] [address] [place] [address] [facility] Care Teams Floral Merchandiser Relationship Specialty Start Date End Date Flora Villa MD [address] [place] [address] PCP - General Internal Medicine 05/20/18 Additional Source Comments The information contained in this document represents components of the legal health record. It is not the complete legal health record.[facility]
--- OUTSIDE RECORDS SUMMARY | 2025-02-03 07:35 | XMS_ITS | Encounter Summary ---
Author Organization [facility] Address [address] [place] [address] Care Team Providers Care Vp Training Name Role Phone Flora Villa MD Primary Care Provider [phone] Encounter Details Date Type Department Care Team (Late st Contact Info) Description 04/21/2024 Scanned Document [facility] [address] [place] [address] Sp Mantilla MD [address] [place] [address] [address] [place] [address] Social History Tobacco Use Types Packs/Day Years [...] on filedocumented in this encounter Care Teams Vp Training Relationship Specialty Start Date End Date Flora Villa MD [address] [facility] [place] [address] PCP - General 03/14/23 documented as of this encounter
--- OUTSIDE RECORDS SUMMARY | 2025-02-03 07:35 | XMS_ITS | Encounter Summary ---
Author Organization [facility] Address [address] [place] [address] Care Team Providers Care Staff Electronic Warfare Officer Name Role Phone Flora Villa MD Primary Care Provider [phone] Encounter Details Date Type Department Care Team (Late st Contact Info) Description 04/10/2023 Scanned Document [facility] [address] [place] [address] Sp Mantilla MD 499 [facility] [address] [place] [phone] Social History Tobacco Use Types Packs/Day Years [...] on filedocumented in this encounter Care Teams Staff Electronic Warfare Officer Relationship Specialty Start Date End Date Flora Villa MD 262 [facility] [place] [address] PCP - General 03/14/23 documented as of this encounter
--- OUTSIDE RECORDS SUMMARY | 2025-02-03 07:35 | XMS_ITS | Encounter Summary ---
Author Organization [facility] Address [address] [place] [address] Care Team Providers Care Construction Superintendent Name Role Phone Flora Villa MD Primary Care Provider [phone] Encounter Details Date Type Department Care Team (Late st Contact Info) Description 04/10/2023 Scanned Document [facility] [address] [place] [address] Sp Mantilla MD 499 [facility] [address] [place] [phone] Social History Tobacco Use Types Packs/Day Years [...] on filedocumented in this encounter Care Teams Construction Superintendent Relationship Specialty Start Date End Date Flora Villa MD [address] [facility] [place] [address] PCP - General 03/14/23 documented as of this encounter
--- OUTSIDE RECORDS SUMMARY | 2025-02-03 07:35 | XMS_ITS | Encounter Summary ---
Author Organization [facility] Address [address] [place] [address] Care Team Providers Care Entry Engineer Name Role Phone Flora Villa MD Primary Care Provider [phone] Encounter Details Date Type Department Care Team (Late st Contact Info) Description 06/13/2023 Scanned Document [facility] [address] [place] [address] Sp Mantilla MD [address] [place] [address] [address] [place] [address] Social History Tobacco Use Types Packs/Day Years [...] on filedocumented in this encounter Care Teams Entry Engineer Relationship Specialty Start Date End Date Flora Villa MD [address] [facility] [place] [address] PCP - General 03/14/23 documented as of this encounter
--- OUTSIDE RECORDS SUMMARY | 2025-02-03 07:35 | XMS_ITS | Clinical Summary ---
Author Organization [facility] Address [address] [place] [address] Care Team Providers Care Drug Safety Data Management Specialist Name Role Phone Flora Villa MD Primary Care Provider [phone] Allergies Active Allergy Reactions Criticality Noted Date [...] Influenza Vaccine 09/18/2024 COVID-19 Vaccine (1 - 2024- season) [address] [place] [id number] [facility] Care Teams Drug Safety Data Management Specialist Relationship Specialty Start Date End Date Flora Villa MD [address] [facility] [place] [id number] PCP - General 03/14/23
--- OUTSIDE RECORDS SUMMARY | 2025-02-03 07:35 | XMS_ITS | Encounter Summary ---
Author Organization [facility] Address [address] [place] [address] Care Team Providers Care Gyroscope Technician Name Role Phone Flora Villa MD Primary Care Provider [phone] Encounter Details Date Type Department Care Team (Late st Contact Info) Description 03/21/2023 Scanned Document [facility] [address] [place] [address] Sp Mantilla MD [address] [place] [address] [address] [place] [address] Social History Tobacco Use Types Packs/Day Years [...] on filedocumented in this encounter Care Teams Gyroscope Technician Relationship Specialty Start Date End Date Flora Villa MD [address] [place] [address] PCP - General 03/14/23 documented as of this encounter
== END 2025-02-03 07:31 | disposition home or self-care (01) ==
LOC: HO.HMGCLDS 07:30
PROVIDERS: PCP Internal Medicine; Visit Provider Internal Medicine
DX: Z00.00 Encounter for general adult medical examination without abnormal findings (principal); Z11.1 Encounter for screening for respiratory tuberculosis
CPT/HCPCS: 36415; 86481